=== PATIENT | female | born 2000 | race Caucasian/White ===

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

== ENCOUNTER → 2019-01-10 | Outpatient (CLI) | payer MEDICAID, SELFPAY ==
[2018-11-23 15:18] VITALS: BMI 46.5
[2019-01-10 14:44] LABS: Hematocrit 34.2 % (37-47); Hemoglobin 10.6 g/dL (12.0-15.0); Mean Platelet Vol. 9.2 fl (6.2-12.0); Platelet Count 345 K/mm3 (150-450); RBC Distribution Width SD 44.7 fl (35.1-43.9); Red Blood Count 3.93 M/mm3 (4.2-5.4); White Blood Count 13.6 K/mm3 (4.4-11.0)
[2019-01-10 14:57] LABS: Free T3 2.1 pg/mL (2.18-3.98); Glucose Challenge Gest 1H 50g 60 mg/dL (70-140); T4 Free Direct 0.97 ng/dL (0.76-1.46); Thyroid Stim Hormone (TSH) 1.36 uIU/mL (0.358-3.74)
[2019-01-10 14:58] LABS: Vitamin D,25 Hydroxy 30.1 ng/mL (29.95-100.01)
[2019-01-11 16:35] LABS: Ferritin 25 ng/mL (8-252)
== END | disposition home or self-care (01) ==
LOC: WOBLAB 13:24
PROVIDERS: Visit Provider Obstetrics & Gynecology
DX: Z34.82 Encounter for supervision of other normal pregnancy, second trimester (principal)
CPT/HCPCS: 36415; 82306; 82728; 82950; 84439; 84443; 84481; 85027

== ENCOUNTER 2019-01-11 22:25 | Outpatient (CLI) | payer MEDICAID, SELFPAY ==
[2018-11-23 15:18] VITALS: BMI 46.5
[2019-01-11 23:38] VITALS: BMI 47.7
--- NOTE | 2019-01-15 17:48 | OB.TRI.NOTE ---
History of Present Illness Date of Service: 01/11/19 Was patient seen by the physician?: No Reason For Visit: ABD PAIN Date of Service: 01/11/19 Final MARIBEL: 04/07/19 Final MARIBEL Source: US <20 weeks Gestational age: 27 Weeks and 5 Days History of Present Illness: 18 yo female presents with discomfort at LUQ. No N/V 27 + wk EGA Allergies adhesive tape Adverse Reaction (Mild, Verified 11/23/18 15:17) Blisters - Pertinent Past Medical History Medical History: Past Medical History (Last Reviewed 11/23/18 @ 15:18 by Margret Smallwood) Secondary oligomenorrhea Subclinical hypothyroidism Surgical History: Past Surgical History (Last Reviewed 11/23/18 @ 15:18 by Margret Smallwood) H/O wisdom tooth extraction History of placement of ear tubes NST - FHR Rate Baby A Baseline: 130-140 avg Variability:: Moderate Accelerations:: None NST Reactive:: Appropriate for gestational age FHR Category:: Category I Uterine Activity:: no UCs noted Impression/Plan 27 5/7 wk LUQ abdominal discomfort Musculoskeletal pain. Comfort measures. False labor. Home, rest, tylenol. Stretches. Keep next ofc appt as scheduled.
== END 2019-01-12 | disposition home or self-care (01) ==
LOC: WPOUT 22:56 → WP 22:57
PROVIDERS: Visit Provider Obstetrics & Gynecology
DX: O47.02 False labor before 37 completed weeks of gestation, second trimester (principal); O26.892 Other specified pregnancy related conditions, second trimester; R10.12 Left upper quadrant pain; Z3A.27 27 weeks gestation of pregnancy
CPT/HCPCS: 59050; 99218; G0378

== ENCOUNTER → 2019-03-16 14:36 | Outpatient (CLI) | payer MEDICAID, SELFPAY | PROVIDERS: Visit Provider Obstetrics & Gynecology | DX: Z36.85 Encounter for antenatal screening for Streptococcus B (principal) | CPT/HCPCS: 87077; 87081; 87186 ==

== ENCOUNTER 2019-03-30 21:31 | Inpatient (IN) | payer MEDICAID, SELFPAY ==
[2019-03-30 21:24] LABS: ROM Internal Control Test YES-OK TO RESULT pt. (Internal QC)
[2019-03-30 21:25] LABS: ROM Patient Test POSITIVE (Negative)
--- NOTE | 2019-03-30 21:40 | PCM.HP.OB ---
- Problem List (1) 38 weeks gestation of Status: Acute History Date of Admission: 03/30/19 Final MARIBEL: 04/07/19 Final MARIBEL Source: US <20 weeks Gestational age: 39 Weeks and 0 Days History of this : This is a 18 year-old, G [1], P [0], at 38.6 weeks gestational age. complicated by maternal obesity. Weekly NSTs began at 36 weeks. Today had NST in office, reactive and reassuring. Medical History: Medical History (Last Reviewed 11/23/18 @ 15:18 by Margret Smallwood) Secondary oligomenorrhea N91.4 Subclinical hypothyroidism E03.9 Surgical History: Surgical History (Last Reviewed 11/23/18 @ 15:18 by Margret Smallwood) H/O wisdom tooth extraction K08.409 History of placement of ear tubes Z96.22 Allergies adhesive tape Adverse Reaction (Mild, Verified 11/23/18 15:17) Blisters Home Medications: Home Medications cholecalciferol (vitamin D3) 5,000 unit capsule 5,000 unit PO DAILY 08/01/18 levothyroxine 50 mcg tablet 50 mcg PO DAILY 08/02/18 Tablet 1 tab PO DAILY 01/11/19 Ferrous Sulfate 325 mg PO BID 03/31/19 L.acidoph,Paracasei, B.lactis [Probiotic] 1 ea PO DAILY 03/31/19 Magnesium 30 mg PO DAILY 03/31/19 Smoking Status: Never smoker Number of Fetus(es): 1 NST - FHR Rate Baby A Baseline: 135 Variability:: Moderate Accelerations:: 15 x 15 Decelerations:: None NST Reactive:: Yes FHR Category:: Category I Uterine Activity:: UC 4-6 min History Labs: Mom's Problem List Problem Status Onset Code 38 weeks gestation of Acute Z3A.38 Mom's Labs & Results 03/30/19 03/30/19 03/30/19 21:10 22:30 22:30 WBC 13.8 H RBC 4.22 Hgb 11.5 L Hct 36.4 L MCV 86.3 MCH 27.3 MCHC 31.6 L RDW Std Deviation 48.1 H RDW Coeff of Adenike 15.5 H Plt Count 324 MPV 9.5 Immature Gran % (Auto) 1.400 H Neut % (Auto) 77.3 H Lymph % (Auto) 14.8 L [place] % (Auto) 5.5 Eos % (Auto) 0.7 Baso % (Auto) 0.3 Absolute Neuts (auto) 10.7 H Absolute Lymphs (auto) 2.04 Nucleated RBC % 0 Vag Amniotic Fld Detect POSITIVE H Blood Type O POSITIVE Antibody Screen NEGATIVE Course Did the patient receive Yes care? Labs Blood Type: O RH: POSITIVE RPR/VDRL/Syphilis Nonreactive Rubella status Immune HbSAg Negative Date Done: 09/07/18 Chlamydia Negative Gonorrhea Negative HIV/AIDS Non-Reactive Group B Strep: Positive Current Obstetrical History Gestational Diabetes No Incompetent Cervix No Infertility No IUGR No Macrosomia No Hypertension/Pre-eclampsia No Placenta Previa/Abruption No PTL/PROM No Uterine anomaly No Oligohydramnios No Polyhydramnios No Multiple gestation No Past Medical History Asthma No Diabetes No Hypertension No Heart disease No Mitral valve prolapse No Neurologic/Seizure disorder/ No Migraines Kidney disease No Liver disease No Varicosities Yes: legs Clotting disorders/Hx of DVT No Thyroid Dysfunction Yes: hypothyroidism Other medical diseases No Psychiatric disorders No Major trauma No Abnormal PAP smear No Sleep apnea No Mammogram in the last 2 years No Enter DETAILS of medical PCOS history Social History Marital Status: SINGLE Alleged father Sven Joya Hx Smoking No Smoking Status Never smoker Expected Delivery Method: Spontaneous Vaginal Number of Visits: 13 Review of Systems Constitutional: Denies: Chills, Fever, Weight Change HEENT: Denies: Head Aches, Sinus Congestion, Sinus Drainage Cardiovascular: Denies: Chest Pain, Palpitations Respiratory: Denies: Cough, Shortness of breath at rest, Sputum production Gastrointestinal: Denies: Abdominal Pain, Nausea, Vomiting Genitourinary: Denies: Dysuria Musculoskeletal: Denies: Joint Pain, Joint Tenderness Skin: Denies: Rash, Wounds Neurological: Denies: Numbness, Tingling, Focal weakness Psychiatric: Denies: Anxiety, Depression, Homicidal Ideations, Suicidal Ideations Hematologic/ Lymphatic: Denies: Easy Bruising, Easy Bleeding Physical Exam General: Alert, Oriented x3, No apparent distress HEENT: Atraumatic, Normocephalic. Negative for: Thyromegaly, Lymphadenopathy Cardiovascular: Regular rate, Regular Rhythm Lungs: Clear to auscultation Abdomen: Bowel Sounds Present, Gravid Neurological: Deep Tendon Reflexes 2+/4 and Symmetrical, Neuro grossly intact MANAGEMENT SCIENTIST: Normal external genitalia. Negative for: Vulvar lesions Estimated gestational size: Appropriate for gestational size Presentation: Cephalic Cervix Dilation (cm): 3 - per RN report Station: -3 Effacement (%): 70 Assessment/Plan All Active Problems (Last Reviewed 11/23/18 @ 15:18 by Margret Smallwood) 38 weeks gestation of (Acute) Contact with contaminated hypodermic needle (Acute) Puncture wound of left thumb without foreign body without damage to nail (Acute) (Acute) Hypersomnia (Acute) Physical exam, pre-employment (Acute) This is a 18 year-old, G [1], P [0], at 38.6 weeks gestational age. NST baseline 135, +accels 15x15, negative decels, moderate variability, Category 1 Spontaneous Rupture of Membranes as evidenced by ROM testing SVE /-3 UC Q4-6minutes GBS+ Will admit for labor. Wants a natural delivery.Will recheck SVE in 6 hours if contractions remain regular and consistent. If contractions space out, will recheck SVE in 4 hours. Discussed Pitocin augmentation. Plans four support persons and tub for pain management. Penicillin to begin for positive GBS results.
[2019-03-30] MEDS: Lactated Ringers 1,000 ML 50 ML IV (22:30)
[2019-03-30 22:34] VITALS: BMI 51.4
[2019-03-30 22:53] LABS: Absolute Lymphocyte Count 2.04 X10^3/uL (0.83-4.51); Absolute Neutrophil Count 10.7 X10^3/uL (2.0-7.7); Basophil# 0.04 X10^3/uL; Basophil% 0.3 % (0-1); Eosinophil# 0.09 X10^3/uL; Eosinophils% 0.7 % (0-5); Hematocrit 36.4 % (37-47); Hemoglobin 11.5 g/dL (12.0-15.0); Lymphocyte # 2.04 X10^3/ul (4.0); Lymphocyte % 14.8 % (19-41); Mean Corp Hgb Conc 31.6 g/dL (32-36); Mean Corpuscular Hgb 27.3 pg (27.0-32.0); Mean Corpuscular Volume 86.3 fL (81-99); Mean Platelet Vol. 9.5 fl (6.2-12.0); Monocyte# 0.76 X10^3/uL; Monocyte% 5.5 % (0-10); NRBC Flagged by Analyzer 0 % (0-5); Neutrophil # 10.69 X10^3/uL (2.7-7.7); Neutrophil % 77.3 % (47-70); Platelet Count 324 K/mm3 (150-450); RBC Distribution Width CV 15.5 % (11.6-14.6); RBC Distribution Width SD 48.1 fl (35.1-43.9); Red Blood Count 4.22 M/mm3 (4.2-5.4); White Blood Count 13.8 K/mm3 (4.4-11.0)
[2019-03-31] MEDS: Mag Hydrox/Al Hydrox/Simeth 30 ML UDC PO (02:44)
[2019-03-31] MEDS: Lactated Ringers 1,000 ML 50 ML IV (05:16)
[2019-03-31] MEDS: Oxytocin 30 units/NS 500 ml 30 UNITS/500 ML IV.SOLN IV (06:29)
[2019-03-31] MEDS: Lactated Ringers 500 ML 999 ML IV ×3 (07:15→15:13)
[2019-03-31] MEDS: fentaNYL-bupivacaine (epidural) 100 ML BAG EPIDURAL ×2 (08:28→13:18)
--- NOTE | 2019-03-31 10:49 | PN_ITS ---
Progress Note Called with RN update at 0230 stating SVE at 3.5-/-3. Patient wanting to get into tub for pain management. Order at that time with okay for tub per [facility] office notes. To recheck SVE at 0600. If not 5+cm will need to augment with Pitocin since SROM. Continue Penicillin and maternal temperature checks. Okay to get epidural when needed. Will collaborate with attending Dr. Mata if needed. 1030 on unit. Updated with SVE 3, currently on Pitocin at [address] Mata who states to place internals to monitor strength of contractions. Patient updated with plan of care and would like to wait a little bit before internals being placed. Agreed to give her one more hour.
[2019-03-31] MEDS: Lactated Ringers 1,000 ML 200 ML IV (13:20)
--- NOTE | 2019-03-31 13:41 | PN.OBGYN_ITS ---
Patient Problems: Active and Suspected Problems (Last Reviewed 11/23/18 @ 15:18 by Margret Smallwood) 38 weeks gestation of (Acute) Subjective: Feeling pressure in the abdomen during peak of contraction, otherwise no pain. Bilateral legs completely numb. States feels better with nurses and director of rehabilitative services talking her through everything and is much more comfortable now. Objective: Before internals placed SVE 370/-3 with forebag over head. IUPC and FEM placed causing rupture of forebag and increased bloody show. SVE after 5/80/-2. Pitocin currently on 12 with UC Q1-4 minutes, adequate. FHR baseline 125 with +accels 15x15 and early decels noted after internals placed. - Physical Exam Vitals/I&O's: Weight: 140.2 kg Body Mass Index (BMI) 51.4 Intake and Output for Last 24 Hours 03/29/19 03/30/19 03/31/19 23:59 23:59 23:59 Intake Total 630 / 630 2960.98 / 2960.98 Output Total 300 / 300 400 / 400 Balance 330 / 330 2560.98 / 2560.98 General: Alert, Oriented x3, Cooperative HEENT: Atraumatic, PERRLA, EOMI, Normocephalic Neck: Supple, No JVD, Negative Carotid Bruits Lungs: Clear to auscultation, Normal air movement Cardiovascular: Regular rate, No murmurs Abdomen: Bowel Sounds Present, Soft, Non Tender Extremities: No edema, Capillary Refill Less than 3 Seconds Skin: No rashes, No breakdown Musculoskeletal: No Tenderness to Palpation of Joints or Extremities Neurological: Cranial nerves II-XII grossly intact Psych/Mental Status: Normal Affect, Appropriate Laboratory Results 03/30/19 21:10: Vag Amniotic Fld Detect POSITIVE H 03/30/19 22:30: WBC 13.8 H, RBC 4.22, Hgb 11.5 L, Hct 36.4 L, MCV 86.3, MCH 27.3, MCHC 31.6 L, RDW Std Deviation 48.1 H, RDW Coeff of Adenike 15.5 H, Plt Count 324, MPV 9.5, Immature Gran % (Auto) 1.400 H, Neut % (Auto) 77.3 H, Lymph % (Auto) 14.8 L, [place] % (Auto) 5.5, Eos % (Auto) 0.7, Baso % (Auto) 0.3, Absolute Neuts (auto) 10.7 H, Absolute Lymphs (auto) 2.04, Nucleated RBC % 0 03/30/19 22:30: Blood Type O POSITIVE, Antibody Screen NEGATIVE Current Medications Acetaminophen (Tylenol) 325 - 650 mg PO Q4H PRN PRN PRN Reason: Pain Score 1-3/10 Al Hydroxide/Mg Hydroxide (Mylanta Ii) 15 - 30 ml PO Q4H PRN PRN PRN Reason: INDIGESTION Last Admin: 03/31/19 02:44 Dose: 30 ml Documented by: Citric Acid/Sodium Citrate (Bicitra) 30 ml PO X1 PRN PRN Reason: Section Ephedrine Sulfate () 10 mg IV Q10M PRN PRN Reason: hypotension Ephedrine Sulfate () 10 mg IM Q30M PRN PRN Reason: hypotension Fentanyl/Bupivacaine/Sodium Chlor () 0 ml EPIDURAL UD [facility]; Protocol Last Admin: 03/31/19 13:18 Dose: 100 ml Documented by: Lactated Ringer's () 500 mls @ 999 mls/hr IV .Q31M PRN PRN Reason: Epidural Last Infusion: 03/31/19 09:09 Dose: Infused Documented by: Lactated Ringer's () 500 mls @ 999 mls/hr IV .Q31M PRN PRN Reason: Corrective Measures Lactated Ringer's () 1,000 mls @ 50 mls/hr IV .Q20H [facility] Last Admin: 03/31/19 13:20 Dose: 200 mls/hr Documented by: Penicillin G Potassium/Dextrose (Penicillin G Potassium) 3 mu in 50 mls @ 100 mls/hr IV Q4H [facility] Last Infusion: 03/31/19 11:36 Dose: Infused Documented by: Naloxone HCl 4 mg/ Dextrose 504 mls @ 0 mls/hr IV .Q0M PRN; Protocol PRN Reason: To maintain Resp. rate >10 Oxytocin/Sodium Chloride () 30 units in 500 mls @ 2 mls/hr IV .Q250H [facility] Last Infusion: 03/31/19 11:04 Dose: 12 mls/hr Documented by: Nalbuphine HCl (Nubain) 5 - 10 mg IV Q3H PRN PRN PRN Reason: Pain Score 4-10/10 Nalbuphine HCl (Nubain) 5 mg IV Q3H PRN PRN PRN Reason: ITCHING Naloxone HCl (Narcan) 0.02 mg IV Q1M PRN PRN Reason: RR< 10 AND PT UNRESPONSIVE Ondansetron HCl (Zofran) 4 mg IV Q4H PRN PRN PRN Reason: NAUSEA Prochlorperazine Edisylate (Compazine Iv) 10 mg IV Q6H PRN PRN PRN Reason: NAUSEA Sodium Chloride () 10 - 40 ml IV X1 PRN PRN Reason: SALINE FLUSH Medical Necessity - Tobacco Use Smoking Status: Never smoker Assessment/Plan All Active Problems (Last Reviewed 11/23/18 @ 15:18 by Margret Smallwood) 38 weeks gestation of (Acute) Contact with contaminated hypodermic needle (Acute) Puncture wound of left thumb without foreign body without damage to nail (Acute) (Acute) Hypersomnia (Acute) Physical exam, pre-employment (Acute) A: 39w1d here with SROM Augmentation with Pitocin, currently at 12 NST Reactive, Category I tracing Epidural in place UC Q1-4 minutes with IUPC showing adequate contractions Active Labor GBS+ on Penicillin protocol Mother afebrile 98.5 P: Continue with Pitocin as tolerated by mother and fetus Expect spontaneous vaginal delivery To recheck SVE at 1700 or as needed
[2019-03-31] MEDS: Oxytocin 30 units/NS 500 ml 30 UNITS/500 ML IV.SOLN 6 UNITS IV (15:37)
--- NOTE | 2019-03-31 15:50 | PCM.PN.BLA ---
Progress Note LABOR PROGRESS NOTE Called to WP for FHR deceleration. Pt had been on 12 mIU/min pitocin induction after SROM. PCN for GBS prophylaxis and prolonged SROM> Strip reviewed: IFM: 110-120s avg variability Accels noted. Variable decelerations FHR deceleration then noted to as low as 60 bpm with intermittent return. lasting up to 8 mins UCs q 2-4 mins Pitocin off O2 on position changes and IV bolus. FHR recovered. Cx rapid progression from 5 cm to complete, noted at time of FHR decel A/P: 39 wk EGA Prolonged SROM Pitocin induction Epidural in place, comfortable. Pt back to OR for FHR deceleration. FHR recovered to baseline, and mild variables with pushing.
[2019-03-31] MEDS: Oxytocin 30 units/NS 500 ml 30 UNITS/500 ML IV.SOLN 334 UNITS IV (16:31)
[2019-03-31] MEDS: Methylergonovine 0.2 MG/ML Ampul IM (16:34)
[2019-03-31] MEDS: miSOPROStol 200 MCG Tablet 800 MCG RECTAL (16:35)
--- NOTE | 2019-03-31 17:07 | PCM.OPRPT ---
Problem List (1) 38 weeks gestation of Status: Acute Vaginal Delivery Maternal Presentation: Spontaneous Rupture of Membranes Method of Induction: Pitocin Amniotic Membrane Rupture Type: Spontaneous at home Rupture of Membrane time: 1500 on 03/30/2019 Amniotic Fluid Description: Clear Final MARIBEL: 04/06/19 Final MARIBEL Source: US <20 weeks Gestational age: 39 Weeks and 1 Days Date of Procedure: 03/31/19 Pre-Operative Diagnosis: 39 weeks gestation Post-Operative Diagnosis: S/P Surgery/ Procedure Performed: Spontaneous Vaginal Delivery Type of Anesthesia: Epidural Description of Procedure: Taken to OR to proceed with pushing in collaboration with CNM attending, Dr. Mata present. Pushed well, delivered a viable male OA to MIGUEL. Nuchal x2 removed from infants neck, infant placed on mothers abdomen. Apgars 8/9. Cord blood collected. Cord clamped x2 by CNM and cut by FOB. Pitocin started at 334ml/hr. Placenta delivered spontaneously, Alvarado mechanism, intact, 3 vessel cord, central insertion. With post placental bleeding, administered 800mg Cytotec rectal, Methergine IM, and Pitocin wide open. Dr. Mata was able to use curretage to remove retained placental products. Second degree laceration of right vaginal vault extending to perineum, repaired with a 3.0 vicryl in layers by CNM and attending. EBL 400. Sponge and instrument count correct x 2 with CAITLIN. Rylie Lagunas CNM delivered with CNM attending Dr. Mata present throughout. Presentation: Vertex, MIGUEL Placental Delivery Description: Spontaneous, Curettage - of remained products by Dr. Mata Placenta Disposition: [facility] Cord Vessel Description: 3 Vessels Cord Entanglement: Around neck x 2, loose Estimated Blood Loss: 450 A gender: Male (1 minute): 8 (5 minute): 9 Episiotomy Description: None Laceration: Vaginal Extension/lac, 2nd degree Medications given after delivery: IV Pitocin, IM Methergin, - - 800mg Cytotec
[2019-03-31] MEDS: Ibuprofen 600 MG Tablet PO ×2 (17:56→23:44)
[2019-03-31] MEDS: Oxytocin 30 units/NS 500 ml 30 UNITS/500 ML IV.SOLN 167 UNITS IV (18:22)
[2019-03-31] MEDS: Acetaminophen 500 MG Tablet 1000 MG PO (19:34)
[2019-03-31] MEDS: 0.9% Saline Lock 10 ML Syringe IV (20:35)
[2019-03-31 23:45] VITALS: BP 133/81; PULSE 77; RESP 19; TEMP 36.1
[2019-04-01] MEDS: Dibucaine 30 GM Tube 1 APPLIC TOPICAL (01:47)
[2019-04-01] MEDS: Hydrocortisone 2.5% Crm 1 APPLIC TOPICAL (01:48)
[2019-04-01] MEDS: Senna/Docusate Sodium 1 Tablet PO ×2 (01:48→13:31)
[2019-04-01] MEDS: oxyCODONE 5 MG Tablet PO ×2 (01:49→20:27)
[2019-04-01 04:01] VITALS: BP 122/69; PULSE 80; RESP 18; TEMP 36.5
[2019-04-01] MEDS: Acetaminophen 500 MG Tablet 1000 MG PO ×2 (04:13→13:31)
[2019-04-01] MEDS: Ibuprofen 600 MG Tablet PO ×2 (06:12→12:13)
[2019-04-01 06:31] LABS: Hematocrit 28.9 % (37-47); Hemoglobin 9.2 g/dL (12.0-15.0); Mean Corp Hgb Conc 31.8 g/dL (32-36); Mean Corpuscular Hgb 27.2 pg (27.0-32.0); Mean Corpuscular Volume 85.5 fL (81-99); Mean Platelet Vol. 9.6 fl (6.2-12.0); Platelet Count 249 K/mm3 (150-450); RBC Distribution Width CV 15.6 % (11.6-14.6); RBC Distribution Width SD 48.8 fl (35.1-43.9); Red Blood Count 3.38 M/mm3 (4.2-5.4); White Blood Count 13.9 K/mm3 (4.4-11.0)
[2019-04-01 08:00] VITALS: BP 130/67; PULSE 85; RESP 15; TEMP 36.7
--- NOTE | 2019-04-01 09:31 | PCM.PN.OB ---
Patient Problems: Active and Suspected Problems (Last Reviewed 11/23/18 @ 15:18 by Margret Smallwood) 38 weeks gestation of (Acute) Subjective: Feeling okay. States pain is mostly from hemorrhoid from pushing. Has been rotating Tylenol, Motrin and took Oxy at HS to help her sleep. Using witch reinier pads and ointments directly on hemorrhoid and one on vagina. Objective: In bed laying on left side upon entering room with infant in bassinet bedside. Pain 4/10 hemorrhoidal. is going well. Last fed at 7am. Fundus U/1. Bleeding well controlled and denies any clots. Hg 9.5 and currently taking daily PO Iron. BMx1 last evening. Vitals WNL. - Physical Exam Vitals/I&O's: Vital Signs Temp Pulse Resp BP 97.7 F L 80 18 122/69 H 04/01/19 04:01 04/01/19 04:01 04/01/19 04:01 04/01/19 04:01 Oxygen Delivery Method Room Air Weight: 140.2 kg Body Mass Index (BMI) 51.4 Intake and Output for Last 24 Hours 03/30/19 03/31/19 04/01/19 23:59 23:59 23:59 Intake Total 630 / 630 4962.75 / 4962.75 Output Total 300 / 300 2600 / 2600 600 / 600 Balance 330 / 330 2362.75 / 2362.75 -600 / -600 General: Alert, Oriented x3, Cooperative HEENT: Atraumatic, PERRLA, EOMI, Normocephalic Neck: Supple, No JVD, Negative Carotid Bruits Lungs: Clear to auscultation, Normal air movement Cardiovascular: Regular rate, No murmurs Abdomen: Bowel Sounds Present, Soft, Non Tender Extremities: No edema, Capillary Refill Less than 3 Seconds Skin: No rashes, No breakdown, - - vaginal laceration Musculoskeletal: No Tenderness to Palpation of Joints or Extremities Neurological: Cranial nerves II-XII grossly intact Psych/Mental Status: Normal Affect, Appropriate Laboratory Results 04/01/19 06:15: WBC 13.9 H, RBC 3.38 L, Hgb 9.2 L, Hct 28.9 L, MCV 85.5, MCH 27.2, MCHC 31.8 L, RDW Std Deviation 48.8 H, RDW Coeff of Adenike 15.6 H, Plt Count 249, MPV 9.6 Current Medications Acetaminophen (Tylenol) 1,000 mg PO Q8H PRN PRN PRN Reason: Pain Score 1-3/10 Last Admin: 04/01/19 04:13 Dose: 1,000 mg Documented by: Bisacodyl (Dulcolax) 10 mg RECTAL UD PRN PRN Reason: If no BM Dibucaine (Dibucaine) 1 applic TOPICAL TID PRN PRN; Protocol PRN Reason: Discomfort Last Admin: 04/01/19 01:47 Dose: 1 applicatio Documented by: Hydrocortisone (Hytone) 1 applic TOPICAL TID PRN PRN; Protocol PRN Reason: Discomfort Last Admin: 04/01/19 01:48 Dose: 1 applicatio Documented by: Ibuprofen (Motrin) 600 mg PO Q6H PRN PRN PRN Reason: Pain Score 1-3/10 Last Admin: 04/01/19 06:12 Dose: 600 mg Documented by: Methylergonovine Maleate (Methergine) 0.2 mg IM X1 PRN PRN Reason: Excess bleeding/uterine atony Last Admin: 03/31/19 16:34 Dose: 0.2 mg Documented by: Ondansetron HCl (Zofran) 4 mg IV Q4H PRN PRN PRN Reason: Nausea Oxycodone HCl (Oxyir) 5 - 10 mg PO Q4H PRN PRN PRN Reason: Pain Score 4-10/10 Last Admin: 04/01/19 01:49 Dose: 10 mg Documented by: Senna/Docusate Sodium (Senokot-S, [place]ron[place]-Colace) 1 - 2 tablet PO DAILY PRN PRN PRN Reason: Constipation Last Admin: 04/01/19 01:48 Dose: 1 tablet Documented by: Simethicone (Mylicon) 80 mg PO PCHS PRN PRN Reason: Indigestion/Stomach pain Sodium Chloride () 5 - 15 ml IV UD PRN PRN Reason: SALINE FLUSH Last Admin: 03/31/19 20:35 Dose: 10 ml Documented by: Medical Necessity - Tobacco Use Smoking Status: Never smoker Assessment/Plan All Active Problems (Last Reviewed 11/23/18 @ 15:18 by Margret N Cogar) 38 weeks gestation of (Acute) Contact with contaminated hypodermic needle (Acute) Puncture wound of left thumb without foreign body without damage to nail (Acute) (Acute) Hypersomnia (Acute) Physical exam, pre-employment (Acute) A: Post Vaginal Delivery Day #1 Hemorrhoidal and Vaginal laceration pain 4/10 being controlled with oral medication Male doing well BM x1 11-23-19, but denies Flatus today. Educated on colace, increased fluids, increased fiber, and not straining. Hg 9.5 Stable mother and male infant P: Continue oral pain medication, colace/stool softener, comfort measures, and Plan to discharge tomorrow afternoon
--- NOTE | 2019-04-01 10:16 | PCM.DCVAG ---
Discharge Diet: No Restrictions Discharge Activity: Return to Normal Activity, May not drive while taking narcotic pain medications., May Shower May resume sexual activity in: 4-6 weeks Additional Activity Instructions:: Nothing in the vagina for 4-6 weeks. You may return to work/school in 6 weeks. Call your doctor if your incision/area has: Continuous Slow Oozing, Sudden Increased Bleeding, Increased Pain/ Swelling, Increased Redness, Foul Smelling Discharge Call your doctor if you observe: Fever of 101 or Higher, Coldness, Increased Pain, Numbness or Tingling, Inability to urinate, Inability to have a bowel movement, Using more than one pad per hour, Shortness of breath, Dizziness, Swelling in the ankles, Chest pain, Increased palpitations (irregular heartbeat), Calf discomfort, Uncontrolled pain Additional Instructions: If you experience any of the following, contact your healthcare provider. Bleeding that soaks a pad every hour for 2 hours Unrelieved incision or abdominal pain Swelling, redness, discharge or bleeding from your incision or episiotomy site Your incision begins to separate Problems urinating (including inability to urinate or burning while urinating). Visual changes Severe headache Flu-like symptoms Pain or redness in one of both of your breasts Pain, warmth, tenderness or swelling in your legs, especially the calf area Frequent nausea and vomiting Symptoms of depression or anxiety If you experience any of the following, call 911 or go to the nearest Emergency Room. Chest pain Problems breathing Seizure activity Partial or complete paralysis of a body part, slurred speech, weakness or drooping of the face, or a sudden inability to walk or hold your balance Allergies/Adverse Reactions: Allergies adhesive tape Adverse Reaction (Mild, Verified 11/23/18 15:17) Blisters Medications to take at Discharge cholecalciferol (vitamin D3) 5,000 unit capsule 5,000 unit PO DAILY 08/01/18 levothyroxine 50 mcg tablet 50 mcg PO DAILY 08/02/18 Tablet 1 tab PO DAILY 01/11/19 Ferrous Sulfate 325 mg PO BID 03/31/19 L.acidoph,Paracasei, B.lactis [Probiotic] 1 ea PO DAILY 03/31/19 Magnesium 30 mg PO DAILY 03/31/19 Acetaminophen [Tylenol] 1,000 mg PO Q8H PRN PRN tablet 04/01/19 Bisacodyl [Dulcolax] 10 mg RECTAL UD PRN suppos. 04/01/19 Dibucaine 1 applic TOPICAL TID PRN PRN tube 04/01/19 Docusate Sodium [Colace] 200 mg PO DAILY #30 cap 04/01/19 Hydrocortisone 2.5% Crm [Hytone] 1 applic TOPICAL TID PRN PRN tube 04/01/19 Ibuprofen [Motrin] 600 mg PO Q6H PRN PRN #30 tab 04/01/19 Oxycodone [Oxyir] 5 - 10 mg PO Q4H PRN PRN 4 Days #10 tablet 04/01/19 The following prescriptions were given: Docusate Sodium [Colace] 200 mg PO DAILY #30 cap Transmission Status: Pending to [facility] [address] Ibuprofen [Motrin] 600 mg PO Q6H PRN PRN #30 tab PRN Reason: Pain Score 1-3/10 Transmission Status: Pending to [place] [id number] Oxycodone [Oxyir] 5 - 10 mg PO Q4H PRN PRN 4 Days #10 tablet PRN Reason: Pain Score 4-10/10 Transmission Status: Received by [address] Please Follow Up With: Loretta Martinez MD When: Call to make an appointment with your doctor in 6 weeks. Test Results: Test results from this visit will be discussed in further detail at your follow-up appointment, if applicable. Proposed Discharge Date: 04/02/19
[2019-04-01 12:00] VITALS: BP 98/53; PULSE 85; RESP 16; TEMP 36.2
[2019-04-01 16:16] VITALS: BP 118/57; PULSE 81; RESP 15; TEMP 36.6
[2019-04-01 19:40] VITALS: BP 94/55; PULSE 86; RESP 18; TEMP 37
[2019-04-02] MEDS: Ibuprofen 600 MG Tablet PO ×3 (00:01→13:18)
[2019-04-02 02:00] VITALS: BP 118/57; PULSE 74; RESP 18; TEMP 36.1
[2019-04-02] MEDS: Dibucaine 30 GM Tube 1 APPLIC TOPICAL (06:24)
[2019-04-02] MEDS: Acetaminophen 500 MG Tablet 1000 MG PO (06:25)
[2019-04-02 08:00] VITALS: BP 129/59; PULSE 83; RESP 16; TEMP 36.2
[2019-04-02] MEDS: Docusate Sodium 100 MG Capsule 200 MG PO (08:13)
--- NOTE | 2019-04-02 08:21 | PCM.DC.SUM ---
Discharge Date and Diagnosis - Problem List Patient Problems: Active and Suspected Problems (Last Reviewed 11/23/18 @ 15:18 by Margret Smallwood) 38 weeks gestation of (Acute) Date of Admission: 03/30/19 Date of Discharge: 04/02/19 - Primary Discharge Diagnosis S/P - Secondary Discharge Diagnosis Chronic Problems (Last Reviewed 11/23/18 @ 15:18 by Margret Smallwood) Morbid (severe) obesity due to excess calories (Chronic) Hospital Course and Treatment Operations: None Procedures: None Summary of Care Provided: The patient is a 18 year old F [] Patient Problems: Active and Suspected Problems (Last Reviewed 11/23/18 @ 15:18 by Margret Smallwood) 38 weeks gestation of (Acute) Subjective: Day #2 from [facility]. Feeling well. Passing flatus with Colace. Has been using witch reinier pads with hydrocortisone and other cream to hemorrhoids. States baby has fed for the last two hours and she is tired. Wanting help getting him changed and swaddled. Pain currently 5/10 taking motrin, tylenol, and oxy IR just at HS. Will call for help and s/s of PPD. Objective: Vitals WNL. Fundus u/2. Currently taking Colace, Motrin, Tylenol, and Oxy IR as well as using Witch Reinier pads with ointment. To continue all. Appears well healing day 2. - Physical Exam Vitals/I&O's: Vital Signs Temp Pulse Resp BP 97.0 F L 74 18 118/57 L 04/02/19 02:00 04/02/19 02:00 04/02/19 02:00 04/02/19 02:00 Oxygen Delivery Method Room Air Weight: 140.2 kg Body Mass Index (BMI) 51.4 Intake and Output for Last 24 Hours 03/31/19 04/01/19 04/02/19 23:59 23:59 23:59 Intake Total 4962.75 / 4962.75 Output Total 2600 / 2600 600 / 600 Balance 2362.75 / 2362.75 -600 / -600 General: Alert, Oriented x3, Cooperative HEENT: Atraumatic, PERRLA, EOMI, Normocephalic Neck: Supple, No JVD, Negative Carotid Bruits Lungs: Clear to auscultation, Normal air movement Cardiovascular: Regular rate, No murmurs Abdomen: Bowel Sounds Present, Soft, Non Tender Extremities: No edema, Capillary Refill Less than 3 Seconds Skin: No rashes, No breakdown Musculoskeletal: No Tenderness to Palpation of Joints or Extremities Neurological: Cranial nerves II-XII grossly intact Psych/Mental Status: Normal Affect, Appropriate Current Medications Acetaminophen (Tylenol) 1,000 mg PO Q8H PRN PRN PRN Reason: Pain Score 1-3/10 Last Admin: 04/02/19 06:25 Dose: 1,000 mg Documented by: Bisacodyl (Dulcolax) 10 mg RECTAL UD PRN PRN Reason: If no BM Dibucaine (Dibucaine) 1 applic TOPICAL TID PRN PRN; Protocol PRN Reason: Discomfort Last Admin: 04/02/19 06:24 Dose: 1 applicatio Documented by: Docusate Sodium (Colace) 200 mg PO DAILY CHEKO Stop: 04/09/19 10:01 Last Admin: 04/02/19 08:13 Dose: 200 mg Documented by: Hydrocortisone (Hytone) 1 applic TOPICAL TID PRN PRN; Protocol PRN Reason: Discomfort Last Admin: 04/01/19 01:48 Dose: 1 applicatio Documented by: Ibuprofen (Motrin) 600 mg PO Q6H PRN PRN PRN Reason: Pain Score 1-3/10 Last Admin: 04/02/19 08:09 Dose: 600 mg Documented by: Methylergonovine Maleate (Methergine) 0.2 mg IM X1 PRN PRN Reason: Excess bleeding/uterine atony Last Admin: 03/31/19 16:34 Dose: 0.2 mg Documented by: Ondansetron HCl (Zofran) 4 mg IV Q4H PRN PRN PRN Reason: Nausea Oxycodone HCl (Oxyir) 5 - 10 mg PO Q4H PRN PRN PRN Reason: Pain Score 4-10/10 Last Admin: 04/01/19 20:27 Dose: 10 mg Documented by: Senna/Docusate Sodium (Senokot-S, Petrona-Colace) 1 - 2 tablet PO DAILY PRN PRN PRN Reason: Constipation Last Admin: 04/01/19 13:31 Dose: 2 tablet Documented by: Simethicone (Mylicon) 80 mg PO HS PRN PRN Reason: Indigestion/Stomach pain Sodium Chloride () 5 - 15 ml IV UD PRN PRN Reason: SALINE FLUSH Last Admin: 03/31/19 20:35 Dose: 10 ml Documented by: Discharge Diet: No Restrictions Discharge Activity: Return to Normal Activity, May not drive while taking narcotic pain medications., May Shower May resume sexual activity in: 4-6 weeks Additional Activity Instructions:: Nothing in the vagina for 4-6 weeks. You may return to work/school in 6 weeks. Call your doctor if your incision/area has: Continuous Slow Oozing, Sudden Increased Bleeding, Increased Pain/ Swelling, Increased Redness, Foul Smelling Discharge Call your doctor if you observe: Fever of 101 or Higher, Coldness, Increased Pain, Numbness or Tingling, Inability to urinate, Inability to have a bowel movement, Using more than one pad per hour, Shortness of breath, Dizziness, Swelling in the ankles, Chest pain, Increased palpitations (irregular heartbeat), Calf discomfort, Uncontrolled pain Home Medications: Medications to take at Discharge cholecalciferol (vitamin D3) 5,000 unit capsule 5,000 unit PO DAILY 08/01/18 levothyroxine 50 mcg tablet 50 mcg PO DAILY 08/02/18 Tablet 1 tab PO DAILY 01/11/19 Ferrous Sulfate 325 mg PO BID 03/31/19 L.acidoph,Paracasei, B.lactis [Probiotic] 1 ea PO DAILY 03/31/19 Magnesium 30 mg PO DAILY 03/31/19 Acetaminophen [Tylenol] 1,000 mg PO Q8H PRN PRN tab 04/01/19 Bisacodyl [Dulcolax] 10 mg RECTAL UD PRN suppos. 04/01/19 Dibucaine 1 applic TOPICAL TID PRN PRN tube 04/01/19 Docusate Sodium [Colace] 200 mg PO DAILY #30 cap 04/01/19 Hydrocortisone 2.5% Crm [Hytone] 1 applic TOPICAL TID PRN PRN tube 04/01/19 Ibuprofen [Motrin] 600 mg PO Q6H PRN PRN #30 tab 04/01/19 Oxycodone [Oxyir] 5 - 10 mg PO Q4H PRN PRN 4 Days #10 tab 04/01/19 Following Prescrptions Were Given to Patient: Docusate Sodium [Colace] 200 mg PO DAILY #30 cap Transmission Status: Received by YOVANY [facility]HEWS [address] Ibuprofen [Motrin] 600 mg PO Q6H PRN PRN #30 tab PRN Reason: Pain Score 1-3/10 Transmission Status: Received by YOVANY MATHEWS RD Oxycodone [Oxyir] 5 - 10 mg PO Q4H PRN PRN 4 Days #10 tab PRN Reason: Pain Score 4-10/10 Transmission Status: Received by YOVANY MATHEWS RD Please Follow Up With: Loretta Martinez MD When: 6 weeks Disposition: Home Minutes spent on discharge:: 20 Patient Condition:: Stable Medical Necessity - Tobacco Use Smoking Status: Never smoker Meaningful Use Info Meaningful Use Diagnoses (Choose all that apply): None applicable
[2019-04-02 14:00] VITALS: BP 126/65; PULSE 88; RESP 16; TEMP 36.3
--- NOTE | 2019-04-06 11:39 | NURSING ---
had visit, doing well.
== END 2019-04-02 14:30 | disposition home or self-care (01) | DRG 560 ==
LOC: WPOUT 21:31
PROVIDERS: Admitting Provider Obstetrics & Gynecology; Family Provider Obstetrics & Gynecology; Visit Provider Obstetrics & Gynecology
DX: O42.92 Full-term premature rupture of membranes, unspecified as to length of time between rupture and onset of labor (principal); O99.214 Obesity complicating childbirth; E66.01 Morbid (severe) obesity due to excess calories; E03.9 Hypothyroidism, unspecified; O99.284 Endocrine, nutritional and metabolic diseases complicating childbirth; O99.824 Streptococcus B carrier state complicating childbirth; O76 Abnormality in fetal heart rate and rhythm complicating labor and delivery; O69.81X0 Labor and delivery complicated by cord around neck, without compression, not applicable or unspecified; O70.1 Second degree perineal laceration during delivery; O72.2 Delayed and secondary postpartum hemorrhage; O87.2 Hemorrhoids in the puerperium; Z37.0 Single live birth; Z3A.38 38 weeks gestation of pregnancy
CPT/HCPCS: 59025; 59050; 84112; 85025; 85027; 86850; 86900; 86901; 99218; J7120; A4216; G0378

== ENCOUNTER → 2019-05-18 16:15 | Outpatient (CLI) | payer MEDICAID, SELFPAY ==
[2019-05-18 18:23] LABS: Thyroid Stim Hormone (TSH) 1.07 uIU/mL (0.358-3.74)
[2019-05-18 18:32] LABS: Vitamin D,25 Hydroxy 34.7 ng/mL (29.95-100.01)
== END ==
PROVIDERS: Visit Provider Obstetrics & Gynecology
DX: E55.9 Vitamin D deficiency, unspecified (principal); E28.2 Polycystic ovarian syndrome; E03.9 Hypothyroidism, unspecified
CPT/HCPCS: 36415; 82306; 83036; 84443

== ENCOUNTER → 2019-11-13 07:05 | Outpatient (CLI) | payer OTHER, SELFPAY ==
[2019-11-13 10:51] LABS: Vitamin D,25 Hydroxy 47.1 ng/mL
[2019-11-13 11:01] LABS: AST(SGOT) 19 U/L (15-37); Alanine Aminotransfer ALT/SGPT 29 U/L (13-56); Alkaline Phosphatase 100 U/L (45-117); Anion Gap 13 (5-15); BUN 11 mg/dL (7-18); BUN/Creat Ratio 11.7 RATIO (10-20); Chloride 103 mmol/L (98-107); Cholesterol 193 mg/dL (200); Creatinine, Serum 0.94 mg/dL (0.55-1.02); EST Glomerular Filtration Rate 80 mL/min (>60); Est Glom Filt Rate - Afr Amer 97 mL/min (>60); Glucose 78 mg/dL (74-106); High Density Lipoprotein 44 mg/dL; Potassium 3.8 mmol/L (3.5-5.1); Sodium Level 139 mmol/L (136-145); Triglycerides 150 mg/dL; Very Low Density Lipoprotein 30 mg/dL (5-40)
[2019-11-14 12:21] LABS: T4 Free Direct 0.64 ng/dL (0.76-1.46)
[2019-11-14 12:28] LABS: T3 Total - Triiodothyronine 0.66 ng/mL (0.6-1.81)
== END ==
PROVIDERS: PCP Family Medicine; Referring Provider Family Medicine; Visit Provider Family Medicine
DX: E28.2 Polycystic ovarian syndrome (principal); E55.9 Vitamin D deficiency, unspecified; E03.9 Hypothyroidism, unspecified; R79.89 Other specified abnormal findings of blood chemistry
CPT/HCPCS: 36415; 80053; 80061; 82306; 84439; 84443; 84480

== ENCOUNTER → 2019-11-30 11:57 | Outpatient (CLI) | payer OTHER, SELFPAY ==
[2019-11-30 14:20] LABS: Probe Check PASS; Sample Adequacy Control PASS; Specimen Processing Control PASS; Trichomonas Vag DNA by PCR Negative (Negative)
[2019-11-30 14:35] LABS: Chlamydia Trachomatis by PCR Negative (Negative); Neisserai gonorrhoeae by PCR Negative (Negative); Probe Check PASS; Sample Adequacy Control PASS; Specimen Processing Control PASS
== END ==
PROVIDERS: PCP Family Medicine; Visit Provider Obstetrics & Gynecology
DX: Z11.3 Encounter for screening for infections with a predominantly sexual mode of transmission (principal); Z72.51 High risk heterosexual behavior
CPT/HCPCS: 87491; 87591; 87661

== ENCOUNTER → 2019-12-06 10:58 | Outpatient (CLI) | payer OTHER, SELFPAY ==
[2019-12-06 12:55] LABS: hCG Titer Quant., Serum < 1 mIU/mL (1-3)
== END ==
PROVIDERS: PCP Family Medicine; Visit Provider Obstetrics & Gynecology
DX: N91.2 Amenorrhea, unspecified (principal)
CPT/HCPCS: 36415; 84702

== ENCOUNTER → 2020-01-07 17:26 | Outpatient (CLI) | payer OTHER, SELFPAY | PROVIDERS: PCP Family Medicine; Referring Provider Family Medicine; Visit Provider Family Medicine | DX: Z20.828 Contact with and (suspected) exposure to other viral communicable diseases (principal) | CPT/HCPCS: 87635; 94799; U0003 ==

== ENCOUNTER → 2020-01-10 16:31 | Outpatient (CLI) | payer OTHER, SELFPAY ==
[2020-01-10 18:21] LABS: T4 Free Direct 1.19 ng/dL (0.76-1.46)
== END ==
PROVIDERS: PCP Family Medicine; Referring Provider Family Medicine; Visit Provider Family Medicine
DX: E03.9 Hypothyroidism, unspecified (principal); R79.89 Other specified abnormal findings of blood chemistry
CPT/HCPCS: 84439; 84443

== ENCOUNTER → 2020-02-01 | Outpatient (CLI) | payer OTHER, SELFPAY ==
[2020-02-01 17:53] LABS: Mucous, Urine 0 SEEN /hpf (<or=2+); Red Blood Cells-Urine 0 SEEN /hpf (0-5); White Blood Cells 0 SEEN /hpf (0-5)
[2020-02-01 18:40] LABS: Color, Urine Yellow (Yellow); Glucose, Dipstick Normal (Normal); Ketone-Dipstick Negative (Negative); Leukocyte Esterase-Dipstick Negative /ul (Negative); Nitrite-Dipstick Negative (Negative); Occult Blood-Urine Negative /ul (Negative); Protein-Dipstick Negative (Negative); Urine Bilirubin Dipstick Negative (Negative); Urine Clarity Clear (Clear); Urine Urobilinogen Normal (Normal)
[2020-02-01 19:10] LABS: Bacteria RARE /hpf (None Seen); Squamous Epithelial Cells - UA 0-5 SEEN /hpf (5-10)
[2020-02-01 20:18] LABS: Chlamydia Trachomatis by PCR Negative (Negative); Probe Check PASS; Sample Adequacy Control PASS; Specimen Processing Control PASS
== END | disposition home or self-care (01) ==
LOC: LABSPEC 16:12
PROVIDERS: PCP Family Medicine; Referring Provider Family Medicine; Visit Provider Registered Nurse
DX: Z11.3 Encounter for screening for infections with a predominantly sexual mode of transmission (principal)
CPT/HCPCS: 81001; 87491

== ENCOUNTER → 2020-05-05 10:09 | Outpatient (CLI) | payer OTHER, SELFPAY ==
[2020-05-05 12:24] LABS: Erythrocyte Sedimentation Rate 33 mm/hr (0-20)
[2020-05-05 12:25] LABS: Hematocrit 40.1 % (37-47); Hemoglobin 12.4 g/dL (12.0-15.0); Mean Corp Hgb Conc 30.9 g/dL (32-36); Mean Corpuscular Volume 87.2 fL (81-99); Mean Platelet Vol. 9.2 fl (6.2-12.0); Platelet Count 428 K/mm3 (150-450); RBC Distribution Width SD 44.8 fl (35.1-43.9); White Blood Count 10.5 K/mm3 (4.4-11.0)
[2020-05-05 12:28] LABS: Vitamin D,25 Hydroxy 24.2 ng/mL
[2020-05-05 12:39] LABS: Anion Gap 8 (5-15); BUN 11 mg/dL (7-18); BUN/Creat Ratio 10.7 RATIO (10-20); CRP 9.65 mg/L (0.0-3.0); Calcium,Total 8.8 mg/dL (8.5-10.1); Chloride 105 mmol/L (98-107); Creatinine, Serum 1.03 mg/dL (0.55-1.02); EST Glomerular Filtration Rate 72 mL/min (>60); Est Glom Filt Rate - Afr Amer 87 mL/min (>60); Glucose 78 mg/dL (74-106); Magnesium 1.8 mg/dL (1.6-2.6); Potassium 3.9 mmol/L (3.5-5.1); Sodium Level 139 mmol/L (136-145); T4 Free Direct 1.15 ng/dL (0.76-1.46); Thyroid Stim Hormone (TSH) 2.22 uIU/mL (0.358-3.74)
[2020-05-06 13:33] LABS: ANTINUCLEAR ANTIBODIES DIRECT Negative (Negative)
== END ==
PROVIDERS: PCP Family Medicine; Visit Provider Family Medicine
DX: E03.9 Hypothyroidism, unspecified (principal); R25.3 Fasciculation; E55.9 Vitamin D deficiency, unspecified
CPT/HCPCS: 36415; 80048; 82306; 83735; 84439; 84443; 85027; 85652; 86038; 86140

== ENCOUNTER → 2020-07-11 16:55 | Outpatient (CLI) | payer OTHER, SELFPAY ==
--- NOTE | 2020-07-11 16:57 | RAD_ITS ---
STUDY: X-RAY - LEFT WRIST REASON FOR EXAM: Female, 19 years old. Left wrist pain for 2 days. Patient woke up with pain. TECHNIQUE: 3 view(s) of the wrist were obtained. COMPARISON: None. FINDINGS: Normal visualized distal radius and ulna. Normal radiocarpal articulation. Normal distal radioulnar articulation. Normal carpal bones. Normal carpal articulations. Normal carpometacarpal articulation of the thumb. Normal second through fifth carpometacarpal articulations. Normal visualized metacarpal bones. The soft tissue structures are unremarkable. RAD/Wrist min 3 Views IMPRESSION: Normal x-ray examination of the wrist. Electronically Signed: Shaq Olivares DO at 17:06 EST Tel [phone], Service support ,
== END ==
PROVIDERS: PCP Family Medicine; Referring Provider Physician Assistant Surgical; Visit Provider Physician Assistant Surgical
DX: S66.912A Strain of unspecified muscle, fascia and tendon at wrist and hand level, left hand, initial encounter (principal)
CPT/HCPCS: 73110

== ENCOUNTER → 2020-12-09 | Outpatient (CLI) | payer OTHER, SELFPAY ==
[2020-10-11 09:02] VITALS: BMI 51.4
[2020-12-11 06:08] LABS: Chlamydia By Nucleic Acid AMP Positive (Negative)
[2020-12-11 07:38] LABS: Gonococcus By Nucleic Acid AMP Negative (Negative)
[2020-12-11 13:03] LABS: HPV Reflexed? NOT INDICATED
== END | disposition home or self-care (01) ==
LOC: LABSPEC 10:56
PROVIDERS: PCP Family Medicine; Visit Provider Obstetrics & Gynecology
DX: Z12.4 Encounter for screening for malignant neoplasm of cervix (principal); Z11.3 Encounter for screening for infections with a predominantly sexual mode of transmission
CPT/HCPCS: 87491; 87591; 88175; G0145

== ENCOUNTER → 2020-12-16 16:08 | Outpatient (CLI) | payer OTHER, SELFPAY ==
[2020-10-11 09:02] VITALS: BMI 51.4
== END ==
PROVIDERS: PCP Family Medicine; Visit Provider Obstetrics & Gynecology
DX: E28.2 Polycystic ovarian syndrome (principal)
CPT/HCPCS: 36415; 84144

== ENCOUNTER → 2021-02-09 08:36 | Outpatient (CLI) | payer OTHER, SELFPAY ==
--- NOTE | 2021-02-09 09:00 | RAD_ITS ---
INDICATION: EORDER EXAMINATION/TECHNIQUE: X-RAY - XR Abdomen Series W/ Chest 1 View COMPARISON: None FINDINGS: --Chest: LINES/DEVICES: None. LUNGS: No evidence of edema or effusion. No pneumothorax. Mild bronchial wall thickening is seen, no evidence of focal infiltrate or consolidation.. MEDIASTINUM AND CARDIOVASCULAR STRUCTURES: Cardiac silhouette not enlarged. Central airways and mediastinal contour are unremarkable. BONES AND SOFT TISSUES: No acute findings. --Abdomen: BOWEL GAS PATTERN: Non-obstructive. No bowel or stomach distention. Scattered stool visualized in the large bowel. FREE AIR: None visualized. ORGANOMEGALY: Not seen. CALCIFICATIONS: No abnormal calcifications observed. BONES AND SOFT TISSUES: No acute findings. RAD/Acute Abdomen Inc Chest IMPRESSION: No evidence of acute chest pathology. Scattered stool visualized in the large bowel, no evidence of acute abdominal pathology. Electronically Signed: Vic Braga MD at 11:00 EDT Tel , Service support ,
[2021-02-09 10:00] LABS: Hematocrit 39.3 % (37-47); Hemoglobin 12.2 g/dL (12.0-15.0); Mean Corpuscular Hgb 28.6 pg (27.0-32.0); Mean Platelet Vol. 9.7 fl (6.2-12.0); Platelet Count 328 K/mm3 (150-450); RBC Distribution Width CV 13.9 % (11.6-14.6); RBC Distribution Width SD 47.4 fl (35.1-43.9); Red Blood Count 4.27 M/mm3 (4.2-5.4); White Blood Count 7.5 K/mm3 (4.4-11.0)
[2021-02-09 10:26] LABS: Vitamin B12 566 pg/mL (211-911); Vitamin D,25 Hydroxy 49.1 ng/mL
[2021-02-09 10:45] LABS: Anion Gap 8 (5-15); BUN 7 mg/dL (7-18); BUN/Creat Ratio 7.6 RATIO (10-20); Calcium,Total 8.9 mg/dL (8.5-10.1); Chloride 108 mmol/L (98-107); Creatinine, Serum 0.92 mg/dL (0.55-1.02); EST Glomerular Filtration Rate 81 mL/min (>60); Est Glom Filt Rate - Afr Amer 98 mL/min (>60); Glucose 123 mg/dL (74-106); Iron 40 ug/dL (50-170); Magnesium 2.1 mg/dL (1.6-2.6); Potassium 4.1 mmol/L (3.5-5.1); Sodium Level 141 mmol/L (136-145); Thyroid Stim Hormone (TSH) 0.23 uIU/mL (0.358-3.74)
[2021-02-15 13:07] LABS: Vitamin B1, Thiamine 96.8 nmol/L (66.5-200.0)
[2021-02-15 13:51] LABS: Zinc, Plasma or Serum 71 ug/dL (44-115)
== END ==
PROVIDERS: PCP Family Medicine; Referring Provider Family Medicine; Visit Provider Family Medicine
DX: R10.9 Unspecified abdominal pain (principal); Z98.84 Bariatric surgery status
CPT/HCPCS: 36415; 74022; 80048; 82306; 82607; 83540; 83735; 84425; 84443; 84630; 85027

== ENCOUNTER → 2021-03-19 | Outpatient (CLI) | payer OTHER, SELFPAY | END | disposition home or self-care (01) | PROVIDERS: PCP Family Medicine; Referring Provider Family Medicine; Visit Provider Family Medicine | DX: R05.9 Cough, unspecified (principal); J02.9 Acute pharyngitis, unspecified | CPT/HCPCS: 87633; 87635; U0005; U0003 ==

== ENCOUNTER → 2021-03-23 | Outpatient (CLI) | payer OTHER, SELFPAY | END | disposition home or self-care (01) | LOC: LABSPEC 10:25 | PROVIDERS: PCP Family Medicine; Visit Provider Physician Assistant | DX: J02.9 Acute pharyngitis, unspecified (principal) | CPT/HCPCS: 87081 ==

== ENCOUNTER 2021-07-13 14:43 | Outpatient (CLI) | payer OTHER, SELFPAY ==
[2021-07-13 18:05] LABS: Absolute Lymphocyte Count 2.02 X10^3/uL (0.83-4.51); Absolute Neutrophil Count 4.9 X10^3/uL (2.0-7.7); Basophil# 0.04 X10^3/uL; Basophil% 0.5 % (0-1); Eosinophil# 0.09 X10^3/uL; Eosinophils% 1.2 % (0-5); Hematocrit 38.6 % (37-47); Lymphocyte # 2.02 X10^3/ul (0.83-4.51); Lymphocyte % 26.7 % (19-41); Mean Corp Hgb Conc 31.1 g/dL (32-36); Mean Corpuscular Hgb 28.6 pg (27.0-32.0); Mean Corpuscular Volume 92.1 fL (81-99); Mean Platelet Vol. 9.5 fl (6.2-12.0); Monocyte# 0.49 X10^3/uL; Monocyte% 6.5 % (0-10); NRBC Flagged by Analyzer 0 % (0-5); Neutrophil # 4.89 X10^3/uL (2.7-7.7); Neutrophil % 64.6 % (47-70); Platelet Count 332 K/mm3 (150-450); RBC Distribution Width CV 12.9 % (11.6-14.6); RBC Distribution Width SD 43.7 fl (35.1-43.9); Red Blood Count 4.19 M/mm3 (4.2-5.4); White Blood Count 7.6 K/mm3 (4.4-11.0)
[2021-07-13 18:36] LABS: Vitamin B12 412 pg/mL (211-911); Vitamin D,25 Hydroxy 35.6 ng/mL
[2021-07-13 18:40] LABS: Hemoglobin A1c 4.9 % (3.8-5.6)
[2021-07-13 19:08] LABS: ALB/GLOB Ratio 1.1 RATIO (0.9-2.4); AST(SGOT) 13 U/L (15-37); Alanine Aminotransfer ALT/SGPT 19 U/L (13-56); Albumin, Serum 3.4 g/dL (3.2-5.0); Alkaline Phosphatase 70 U/L (45-117); Anion Gap 5 (5-15); BUN 9 mg/dL (7-18); BUN/Creat Ratio 9.9 RATIO (10-20); Calcium,Total 8.3 mg/dL (8.5-10.1); Chloride 110 mmol/L (98-107); Cholesterol 134 mg/dL (200); Creatinine, Serum 0.91 mg/dL (0.55-1.02); EST Glomerular Filtration Rate 82 mL/min (>60); Est Glom Filt Rate - Afr Amer 100 mL/min (>60); Ferritin 45 ng/mL (8-252); Globulin 3.2 g/dL (2.2-4.2); Glucose 75 mg/dL (74-106); High Density Lipoprotein 39 mg/dL; Iron 94 ug/dL (50-170); Iron Binding Capacity,Total 322 ug/dL (250-450); Potassium 4.3 mmol/L (3.5-5.1); Protein, Total 6.6 g/dL (6.4-8.2); Sodium Level 142 mmol/L (136-145); T4 Free Direct 0.99 ng/dL (0.76-1.46); Thyroid Stim Hormone (TSH) 2.73 uIU/mL (0.358-3.74); Triglycerides 89 mg/dL; Very Low Density Lipoprotein 18 mg/dL (5-40)
[2021-07-14 08:20] LABS: PTHIN 63.9 pg/mL (18.4-80.1)
[2021-07-19 23:01] LABS: Vitamin B1, Thiamine 99.4 nmol/L (66.5-200.0)
== END 2021-07-13 23:59 | disposition home or self-care (01) ==
LOC: MTLAB 14:47
PROVIDERS: PCP Family Medicine; Referring Provider Family Medicine; Visit Provider Family Medicine
DX: E03.9 Hypothyroidism, unspecified (principal); Z98.84 Bariatric surgery status; Z13.220 Encounter for screening for lipoid disorders
CPT/HCPCS: 80053; 80061; 82306; 82607; 82728; 82746; 83036; 83540; 83550; 83970; 84425; 84439; 84443; 85025

== ENCOUNTER → 2021-09-03 | Outpatient (CLI) | payer OTHER, SELFPAY | END | disposition home or self-care (01) | LOC: LABSPEC 15:32 | PROVIDERS: PCP Family Medicine; Referring Provider Family Medicine; Visit Provider Family Medicine | DX: Z71.89 Other specified counseling (principal) | CPT/HCPCS: 87635; U0003; U0005 ==

== ENCOUNTER 2021-09-07 15:57 | Emergency (ER) | payer OTHER, SELFPAY ==
[2021-09-07 15:58] VITALS: BP 134/63; PULSE 79; RESP 18; TEMP 36.4; O2SAT 99; BMI 34.7
--- NOTE | 2021-09-07 16:09 | US_ITS ---
STUDY: FIRST TRIMESTER OBSTETRICAL ULTRASOUND EXAMINATION OF 1710 HOURS ON 09/07/2021 REASON FOR EXAM: Female, 20 years old pain with 1st trimester LMP: 08/01/2021. TECHNIQUE: Transabdominal and endovaginal. TECHNICAL QUALITY: Adequate. PRIOR ULTRASOUND: None. FINDINGS: The uterus is of normal size and configuration. It measures 7.5 cm splenic by 4.7 cm in AP diameter by 3.5 cm in transverse diameter. There is no evidence of uterine fibroids. The cervix is closed. There is a 21 mm thickened endometrium. There is no evidence of an intrauterine . The right ovary measures 2.5 cm x 2.3 cm x 1.3 cm and the left ovary measures 4.1 cm x 2.6 cm x 2.3 cm. There is a 1.9 cm x 1.4 cm x 2.3 cm complex solid structure with hypervascularity in the right adnexa adjacent to the right ovary or in the right fallopian tube. An ectopic cannot be excluded. There is no evidence of ovarian torsion. The moderate amount of fluid in the cul-de-sac. There is incidental finding of multiple small gallstones in the gallbladder. There is a tiny amount of fluid in Elizabeth''s pouch. Right kidney has normal appearance. US/Transvaginal w/Preg US IMPRESSION: 1. No evidence of an intrauterine . 2. Presence of a 1.9 cm x 1.4 cm x 2.3 cm complex solid structure with hypervascularity in the right adnexa adjacent to the right ovary are in the right fallopian tube. Cannot exclude an ectopic . Addition, there is a moderate amount of fluid in the cul-de-sac. 3. Otherwise, normal-appearing ovaries without torsion. 4. Presence of a 21 mm thickened endometrium. No other uterine abnormalities. 5. Presence of multiple small gallstones in the gallbladder and a tiny amount of fluid in Morison''s pouch. 6. Normal right kidney. Electronically Signed: Alexander Saravia MD at 18:19 EDT ,
--- NOTE | 2021-09-07 16:16 | ED.VIS.FEGU ---
HPI HPI - Female History of Present Illness Chief Complaint: Abd Pain Informant: patient Pain Pain: Positive for Pelvic Pain Onset: Days Context: Gradual Onset Timing: Intermittent Quality: Positive for Cramping Location: RLQ and Suprapubic Maximum Severity: Mild Bleeding Issue: Negative for Vaginal bleeding, Passing clots and Passing tissue Associated Symptoms Test: Positive Sexually: Positive for Active P: 1 Ab: 0 Narrative Narrative: 20-year-old female G2, P1 Ab0. States her last menstrual period was August 01. To home test was positive also want to a center and they told her it was positive also. She has developed right adnexal pain in the last 2 days. She denies any vaginal bleeding or discharge. She denies any dysuria. No fever or chills. Her first she delivered vaginally full-term without any complications. She does have a history of polycystic ovarian syndrome. She denies any fevers. She denies any other symptoms. Prior similar symptoms: No Recent Illness/Hospitalization: No PFSH PFSH Medical History Acute pharyngitis, unspecified Insulin resistance PCOS (polycystic ovarian syndrome) Secondary oligomenorrhea Subclinical hypothyroidism Home Medications escitalopram oxalate 20 mg tablet 20 mg PO DAILY tab 07/11/20 [History Last Taken Unknown] levothyroxine 100 mcg tablet 88 mcg PO DAILY tab 07/11/20 [History Last Taken Unknown] mutivitamin patch TRANSDERMAL DAILY 09/07/21 [History Last Taken Unknown] [id number] [] tab PO 09/07/21 [History Last Taken Unknown] Allergy/AdvReac Type Severity Reaction Status Date / Time adhesive tape AdvReac Mild Blisters Verified 09/07/21 16:00 Family History Grandmother Ovarian cancer Surgical History H/O gastric sleeve H/O wisdom tooth extraction History of placement of ear tubes Social History current occupation: [employer] Smoking Status: Never smoker alcohol intake: never substance use type: does not use ROS ROS ED ROS Narrative Denies except for pelvic pain. Review of Systems ROS Unobtainable: Denies due to encephalopathy Constitutional Constitutional ED: Denies fever(s) Eyes Eyes: Denies change in vision ENT ENT ED: Denies ear pain Cardiovascular Cardiovascular: Denies chest pain Respiratory/Chest Respiratory/Chest: Denies dyspnea Gastrointestinal Gastrointestinal: Denies abdominal pain Genitourinary Genitourinary ED: Denies dysuria Musculoskeletal Musculoskeletal: Denies myalgias Integumentary Denies rash Neurologic Neurologic: Denies headache(s) Psychiatric Psychiatric: Denies depression Endocrine Endocrinology: Denies polyuria Hematologic/Lymphatic Hematologic/Lymphatic: Denies easy bruising Allergic/Immunologic Allergic/Immunologic ED: Denies urticaria EXAM Physical Exam Narrative Exam Narrative: 1-year-old female no acute distress vital signs stable afebrile. H EENT exam unremarkable. Lungs clear to auscultation. Heart regular rhythm rate about 80 no murmur. Abdomen soft nondistended normal bowel sounds no peritoneal signs. Just to the right of the suprapubic region there is tenderness to deep palpation. Not at Allison's point. No peritoneal signs. The rest the abdomen is completely nontender. Rest of exam is unremarkable. Const Vital Signs: 09/07/21 15:58 09/07/21 17:58 Temperature 97.6 F L Temperature Source Temporal Pulse Rate 79 84 Respiratory Rate 18 18 Blood Pressure 134/63 H 120/62 Blood Pressure Mean 86 81 Pulse Ox 99 94 Oxygen Delivery Method Room Air Room Air Positive well nourished and well developed; Negative for cachectic, contractures or unkempt General Appearance ED: well developed and NAD; Negative for unkempt, cachectic, contractures or pallor Nutritional Appearance: Negative for cachectic HEENT Reports moist mucous membranes Negative for trauma or tenderness Eyes PERRL and EOMs intact bilaterally Neck no lymphadenopathy, supple and no JVD Thyroid: Negative for tender Chest Wall inspection of chest normal and palpation of chest normal Resp normal respiratory effort and clear to auscultation bilaterally Effort and Inspection: Negative for pain with movement Auscultation: Negative for rales, rhonchi or wheezes Cardio regular rate, regular rhythm, S1 normal heart sound, no murmurs and no JVD Rate: Negative for tachycardic Rhythm: Negative for abnormal rhythm GI normal to inspection, nondistended, normoactive bowel sounds, soft to palpation, non-tender, non-distended and no masses Auscultation: normoactive bowel sounds Palpation: Negative for tender, guarding or rigid no CVA tenderness Back/Spine no CVA tenderness General Back: Negative for CVA tenderness Extremity normal to inspection and full ROM General Extremety ED: Negative for edema or tenderness General Extremity: Negative for edema Neuro oriented x3 Sensorium / Orientation: alert, oriented to person, oriented to place and oriented to time Motor Exam: strength 5/5 throughout Psych mental status grossly normal Appearance: Negative for unkempt Mood & Affect: Negative for depressed Skin no rashes or lesions noted and no wounds General Skin Exam: Negative for jaundice or pallor MDM MDM MDM Narrative Medical decision making narrative: 20-year-old female with pelvic pain reportedly with no care as of yet. Client and ultrasound along with urinalysis to be obtained. She has had no bleeding. Repeat exam patient is doing well at 6:38 PM. I did discuss all the test results with Dr. Bernice Oro of [place] [employer]. Given the patient has known pain, stable vital signs and blood counts they will see her in the office tomorrow to get a repeat exam and further evaluation for either an early versus possible ectopic. Patient will be given instructions to return if increasing pain, bleeding, lightheaded or feels worse. Lab Data Attestation: I reviewed the patient's lab results. Lab results narrative: CBC normal white count 9. H&H 12 and 38. Platelets 378. UA negative. No signs of infection. Quant is low at 155. Ultrasound as read by the radiologist showed a complex cystic structure in the right adnexa that they cannot tell if this is an ectopic or not. Clinically on exam she has no adnexal pain on pelvic exam. There is no blood or discharge. Pelvic was done with a female nurse present in room. Labs: Laboratory Results - last 24 hr 09/07/21 09/07/21 09/07/21 16:23 16:23 16:25 WBC 9.7 RBC 4.20 Hgb 12.1 Hct 38.6 MCV 91.9 MCH 28.8 MCHC 31.3 L RDW Std Deviation 43.4 RDW Coeff of Adenike 12.9 Plt Count 378 MPV 8.9 Immature Gran % (Auto) 0.500 Neut % (Auto) 61.7 Lymph % (Auto) 29.3 Griggs % (Auto) 6.8 Eos % (Auto) 1.2 Baso % (Auto) 0.5 Absolute Neuts (auto) 6.0 Absolute Lymphs (auto) 2.85 Nucleated RBC % 0 HCG, Quant 155 H Urine Color Yellow Urine Clarity Clear Urine pH 6.0 Ur Specific Maury 1.010 Urine Protein Negative Urine Glucose (UA) Normal Urine Ketones Negative Urine Occult Blood Negative Urine Nitrite Negative Urine Bilirubin Negative Urine Urobilinogen Normal Ur Leukocyte Esterase 500 H Urine RBC 0 SEEN Urine WBC 0-5 SEEN Ur Squamous Epith Cells 0-5 SEEN Urine Bacteria 0 SEEN Urine Mucus 0 SEEN Radiography Diagnostic Testing: Clinical Impression(s) from Imaging Studies Obstetrics Ultrasound 09/07/21 16:09 IMPRESSION: 1. No evidence of an intrauterine . 2. Presence of a 1.9 cm x 1.4 cm x 2.3 cm complex solid structure with hypervascularity in the right adnexa adjacent to the right ovary are in the right fallopian tube. Cannot exclude an ectopic . Addition, there is a moderate amount of fluid in the cul-de-sac. 3. Otherwise, normal-appearing ovaries without torsion. 4. Presence of a 21 mm thickened endometrium. No other uterine abnormalities. 5. Presence of multiple small gallstones in the gallbladder and a tiny amount of fluid in Morison''s pouch. 6. Normal right kidney. Electronically Signed: Alexander Saravia MD at 18:19 EDT Reading Location ID and State: [address] [place] [address] Tel , Service support , Discharge Plan Triage Chief Complaint: Abd Pain ED Provider: Brent Garcia Dx/Rx/DC Orders Clinical Impression: Pelvic pain, First trimester Instructions: ED Pelvic Pain, Unknown Cause Prescriptions: No Action levothyroxine 100 mcg tablet 88 mcg PO DAILY RF: 0 escitalopram oxalate 20 mg tablet 20 mg PO DAILY RF: 0 mutivitamin patch patch transdermal DAILY RF: 0 1 mg Tablet PO RF: 0 Primary Care Provider: Tobias Cotto Referrals: Tobias Cotto MD [Primary Care Provider] - Loretta Polk MD [STAFF PHYSICIAN] - 1 Day Activity Restrictions/Additional Instructions: Currently we do not know this just an early and I cannot see it yet on ultrasound or if you could have an ectopic which is a in the fallopian tube. I discussed all your test results with the [employer] on-call for [place] [employer]. They will see you in the office tomorrow or Tuesday. If you have increasing pain, heavy vaginal bleeding, feel lightheaded or real dizzy you need to return to be reevaluated. Tylenol for pain. Call your [employer]'s office tomorrow morning to be seen tomorrow no later than Tuesday. Disposition Disposition: Home, Self Care
[2021-09-07 16:30] LABS: Absolute Lymphocyte Count 2.85 X10^3/uL (0.83-4.51); Basophil# 0.05 X10^3/uL; Basophil% 0.5 % (0-1); Eosinophil# 0.12 X10^3/uL; Eosinophils% 1.2 % (0-5); Hematocrit 38.6 % (37-47); Hemoglobin 12.1 g/dL (12.0-15.0); Lymphocyte # 2.85 X10^3/ul (0.83-4.51); Lymphocyte % 29.3 % (19-41); Mean Corp Hgb Conc 31.3 g/dL (32-36); Mean Corpuscular Hgb 28.8 pg (27.0-32.0); Mean Corpuscular Volume 91.9 fL (81-99); Mean Platelet Vol. 8.9 fl (6.2-12.0); Monocyte# 0.66 X10^3/uL; Monocyte% 6.8 % (0-10); NRBC Flagged by Analyzer 0 % (0-5); Neutrophil # 5.99 X10^3/uL (2.7-7.7); Neutrophil % 61.7 % (47-70); Platelet Count 378 K/mm3 (150-450); RBC Distribution Width CV 12.9 % (11.6-14.6); RBC Distribution Width SD 43.4 fl (35.1-43.9); White Blood Count 9.7 K/mm3 (4.4-11.0)
[2021-09-07 16:41] LABS: Bacteria 0 SEEN /hpf (None Seen); Mucous, Urine 0 SEEN /hpf (<or=2+); Red Blood Cells-Urine 0 SEEN /hpf (0-5)
[2021-09-07 16:46] LABS: Color, Urine Yellow (Yellow); Glucose, Dipstick Normal (Normal); Ketone-Dipstick Negative (Negative); Leukocyte Esterase-Dipstick 500 /ul (Negative); Nitrite-Dipstick Negative (Negative); Occult Blood-Urine Negative /ul (Negative); Protein-Dipstick Negative (Negative); Urine Bilirubin Dipstick Negative (Negative); Urine Clarity Clear (Clear); Urine Urobilinogen Normal (Normal)
[2021-09-07 17:01] LABS: Squamous Epithelial Cells - UA 0-5 SEEN /hpf (5-10); White Blood Cells 0-5 SEEN /hpf (0-5)
[2021-09-07 17:28] LABS: hCG Titer Quant., Serum 155 mIU/mL (1-3)
[2021-09-07 17:58] VITALS: BP 120/62; PULSE 84; RESP 18; O2SAT 94
== END 2021-09-07 18:56 | disposition home or self-care (01) ==
PROVIDERS: Emergency Provider Emergency Medicine; PCP Family Medicine; Visit Provider Emergency Medicine
DX: O26.891 Other specified pregnancy related conditions, first trimester (principal); R10.2 Pelvic and perineal pain; Z3A.00 Weeks of gestation of pregnancy not specified; O99.281 Endocrine, nutritional and metabolic diseases complicating pregnancy, first trimester; E28.2 Polycystic ovarian syndrome; E88.81 Metabolic syndrome and other insulin resistance; E03.8 Other specified hypothyroidism; Z79.899 Other long term (current) drug therapy; O99.891 Other specified diseases and conditions complicating pregnancy
CPT/HCPCS: 76817; 81001; 84702; 85025; 99283; A4216

== ENCOUNTER → 2021-09-10 | Outpatient (CLI) | payer OTHER, SELFPAY ==
[2021-09-10 11:28] LABS: Progesterone Level 21.12 ng/mL (See Comment)
[2021-09-10 11:29] LABS: ALB/GLOB Ratio 0.9 RATIO (0.9-2.4); AST(SGOT) 16 U/L (15-37); Alanine Aminotransfer ALT/SGPT 29 U/L (13-56); Albumin, Serum 3.5 g/dL (3.2-5.0); Alkaline Phosphatase 87 U/L (45-117); Anion Gap 3 (5-15); BUN 15 mg/dL (7-18); BUN/Creat Ratio 19.7 RATIO (10-20); Calcium,Total 9.1 mg/dL (8.5-10.1); Chloride 108 mmol/L (98-107); Creatinine, Serum 0.76 mg/dL (0.55-1.02); EST Glomerular Filtration Rate 101 mL/min (>60); Est Glom Filt Rate - Afr Amer 122 mL/min (>60); Globulin 3.7 g/dL (2.2-4.2); Glucose 89 mg/dL (74-106); Potassium 4.2 mmol/L (3.5-5.1); Protein, Total 7.2 g/dL (6.4-8.2); Sodium Level 139 mmol/L (136-145)
[2021-09-10 12:29] LABS: hCG Titer Quant., Serum 546 mIU/mL (1-3)
== END | disposition home or self-care (01) ==
LOC: WOBLAB 10:30
PROVIDERS: PCP Family Medicine; Visit Provider Obstetrics & Gynecology
DX: O02.81 Inappropriate change in quantitative human chorionic gonadotropin (hCG) in early pregnancy (principal)
CPT/HCPCS: 36415; 80053; 84144; 84702; 84703

== ENCOUNTER → 2021-09-12 | Outpatient (CLI) | payer OTHER, SELFPAY ==
[2021-09-12 12:29] LABS: hCG Titer Quant., Serum 1200 mIU/mL (1-3)
== END | disposition home or self-care (01) ==
LOC: LAB 10:53
PROVIDERS: PCP Family Medicine; Visit Provider Obstetrics & Gynecology
DX: Z34.81 Encounter for supervision of other normal pregnancy, first trimester (principal)
CPT/HCPCS: 36415; 84702

== ENCOUNTER → 2021-09-18 | Outpatient (CLI) | payer OTHER, SELFPAY ==
[2021-09-18 16:54] LABS: Absolute Lymphocyte Count 1.54 X10^3/uL (0.83-4.51); Absolute Neutrophil Count 7.2 X10^3/uL (2.0-7.7); Basophil# 0.03 X10^3/uL; Basophil% 0.3 % (0-1); Eosinophil# 0.11 X10^3/uL; Eosinophils% 1.1 % (0-5); Hematocrit 35.9 % (37-47); Hemoglobin 11.3 g/dL (12.0-15.0); Lymphocyte # 1.54 X10^3/ul (0.83-4.51); Mean Corp Hgb Conc 31.5 g/dL (32-36); Mean Corpuscular Volume 92.1 fL (81-99); Mean Platelet Vol. 9.4 fl (6.2-12.0); Monocyte# 0.64 X10^3/uL; Monocyte% 6.7 % (0-10); NRBC Flagged by Analyzer 0 % (0-5); Neutrophil # 7.22 X10^3/uL (2.7-7.7); Neutrophil % 75.3 % (47-70); Platelet Count 333 K/mm3 (150-450); RBC Distribution Width SD 43.6 fl (35.1-43.9); White Blood Count 9.6 K/mm3 (4.4-11.0)
[2021-09-18 17:00] LABS: Hemoglobin A1c 4.6 % (3.8-5.6)
[2021-09-18 17:05] LABS: Color, Urine Yellow (Yellow); Glucose, Dipstick Normal (Normal); Ketone-Dipstick Negative (Negative); Leukocyte Esterase-Dipstick Negative /ul (Negative); Nitrite-Dipstick Negative (Negative); Occult Blood-Urine Negative /ul (Negative); Protein-Dipstick Negative (Negative); Specific Gravity, Urine 1.015 (1.002-1.030); Urine Bilirubin Dipstick Negative (Negative); Urine Clarity Clear (Clear); Urine Urobilinogen Normal (Normal)
[2021-09-18 17:12] LABS: Amphetamine Urine VISTA NEGATIVE (<1000 ng/mL); Barbiturate Urine VISTA NEGATIVE (< 200 ng/mL); Benzodiazepine Urine VISTA NEGATIVE (< 200 ng/mL); Cocaine Urine VISTA NEGATIVE (< 300 ng/mL); Ecstacy Urine VISTA NEGATIVE (< 500 ng/mL); Methadone Urine VISTA NEGATIVE (< 300 ng/mL); PCP Urine VISTA NEGATIVE (< 25 ng/mL); THC Urine VISTA NEGATIVE (< 50 ng/mL); Vista UDS pH Range 5
[2021-09-18 17:31] LABS: ALB/GLOB Ratio 0.9 RATIO (0.9-2.4); AST(SGOT) 12 U/L (15-37); Alanine Aminotransfer ALT/SGPT 23 U/L (13-56); Albumin, Serum 3.3 g/dL (3.2-5.0); Alkaline Phosphatase 77 U/L (45-117); Anion Gap 4 (5-15); BUN 10 mg/dL (7-18); BUN/Creat Ratio 14.2 RATIO (10-20); Calcium,Total 8.6 mg/dL (8.5-10.1); Chloride 108 mmol/L (98-107); EST Glomerular Filtration Rate 110 mL/min (>60); Est Glom Filt Rate - Afr Amer 134 mL/min (>60); Ferritin 49 ng/mL (8-252); Globulin 3.6 g/dL (2.2-4.2); Glucose 71 mg/dL (74-106); Iron 47 ug/dL (50-170); Iron Binding Capacity,Total 316 ug/dL (250-450); Protein, Total 6.9 g/dL (6.4-8.2); Sodium Level 138 mmol/L (136-145); Thyroid Stim Hormone (TSH) 2.06 uIU/mL (0.358-3.74)
[2021-09-21 10:04] LABS: HIV - WCH Non-Reactive (Nonreactive); Hepatitis B Surface Antigen Non-Reactive (Nonreactive); Hepatitis C Antibody Non-Reactive (Nonreactive); Rubella IgG Reactive (Nonreactive); Syphilis Antibodies Non-reactive; Vitamin B12 609 pg/mL (211-911); Vitamin D,25 Hydroxy 29.6 ng/mL
[2021-09-21 21:07] LABS: Chlamydia By Nucleic Acid AMP Negative (Negative)
[2021-09-21 21:47] LABS: Gonococcus By Nucleic Acid AMP Negative (Negative)
[2021-09-22 22:15] LABS: Zinc, Plasma or Serum 70 ug/dL (44-115)
== END | disposition home or self-care (01) ==
PROVIDERS: PCP Family Medicine; Visit Provider Obstetrics & Gynecology
DX: Z34.81 Encounter for supervision of other normal pregnancy, first trimester (principal)
CPT/HCPCS: 80053; 80307; 81002; 82306; 82607; 82728; 83036; 83540; 83550; 84443; 84630; 85025; 86703; 86762; 86780; 86803; 87086; 87088; 87340; 87491; 87591

== ENCOUNTER → 2022-06-16 | Outpatient (CLI) | payer OTHER, SELFPAY ==
[2022-06-16 18:21] LABS: Thyroid Stim Hormone (TSH) 1.28 uIU/mL (0.358-3.74)
== END | disposition home or self-care (01) ==
LOC: MTLAB 15:20
PROVIDERS: PCP Family Medicine; Referring Provider Family Medicine; Visit Provider Family Medicine
DX: E03.9 Hypothyroidism, unspecified (principal)
CPT/HCPCS: 36415; 84439; 84443

== ENCOUNTER → 2022-08-25 | Outpatient (CLI) | payer OTHER, SELFPAY ==
[2022-08-25 16:28] LABS: Hematocrit 40.9 % (37-47); Hemoglobin 12.7 g/dL (12.0-15.0); Mean Corp Hgb Conc 31.1 g/dL (32-36); Mean Corpuscular Hgb 29.1 pg (27.0-32.0); Mean Corpuscular Volume 93.6 fL (81-99); Mean Platelet Vol. 9.1 fl (6.2-12.0); Platelet Count 341 K/mm3 (150-450); RBC Distribution Width CV 12.9 % (11.6-14.6); RBC Distribution Width SD 44.1 fl (35.1-43.9); Red Blood Count 4.37 M/mm3 (4.2-5.4); White Blood Count 7.3 K/mm3 (4.4-11.0)
[2022-08-25 16:47] LABS: Hemoglobin A1c 4.5 % (3.8-5.6)
[2022-08-25 17:00] LABS: Erythrocyte Sedimentation Rate 25 mm/hr (0-30)
[2022-08-25 17:26] LABS: AST(SGOT) 57 U/L (15-37); Alanine Aminotransfer ALT/SGPT 311 U/L (13-56); Albumin, Serum 3.6 g/dL (3.2-5.0); Alkaline Phosphatase 129 U/L (45-117); Anion Gap 3 (5-15); BUN 12 mg/dL (7-18); Calcium,Total 8.8 mg/dL (8.5-10.1); Chloride 106 mmol/L (98-107); EST Glomerular Filtration Rate 95 mL/min (>60); Est Glom Filt Rate - Afr Amer 115 mL/min (>60); Globulin 3.5 g/dL (2.2-4.2); Glucose 84 mg/dL (74-106); Potassium 4.1 mmol/L (3.5-5.1); Protein, Total 7.1 g/dL (6.4-8.2); Sodium Level 136 mmol/L (136-145); T4 Free Direct 0.83 ng/dL (0.76-1.46); Thyroid Stim Hormone (TSH) 1.53 uIU/mL (0.358-3.74)
[2022-08-26 09:20] LABS: GGTP 293 U/L (5-55)
[2022-08-26 12:53] LABS: Bilirubin, Direct 0.08 mg/dL (0.00-0.30)
[2022-08-27 08:25] LABS: HEPATITIS B SURFACE AG Negative (Negative); Hep C Antibodies Non Reactive (Non Reactive); Hepatitis A IgM Antibody Negative (Negative); Hepatitis B Core AB IgM Negative (Negative)
== END | disposition home or self-care (01) ==
LOC: MFPLAB 15:27
PROVIDERS: PCP Family Medicine; Visit Provider Family Medicine
DX: R79.89 Other specified abnormal findings of blood chemistry (principal); F41.9 Anxiety disorder, unspecified; R63.5 Abnormal weight gain; E03.9 Hypothyroidism, unspecified
CPT/HCPCS: 36415; 80053; 80074; 82248; 82533; 82977; 83036; 84439; 84443; 84481; 85027; 85652

== ENCOUNTER → 2022-08-30 | Outpatient (CLI) | payer OTHER, SELFPAY ==
--- NOTE | 2022-08-30 09:50 | US_ITS ---
STUDY: ABDOMINAL ULTRASOUND - RIGHT UPPER QUADRANT REASON FOR VISIT: Female, 21 years old elevated LFT TECHNIQUE: Ultrasound evaluation of the right upper quadrant was performed with real-time and static virk-scale imaging. TECHNICAL QUALITY: Adequate. COMPARISON: None. FINDINGS: Liver: The liver measures 15.2 cm. There is increased echogenicity consistent with fatty infiltration. The bile ducts are within normal limits. There is hepatic color flow. The direction of portal flow is hepatopetal. There is no demonstrated mass lesion. Gallbladder: Normal distended gallbladder. The gallbladder wall measures 2.0 mm. There is a negative sonographic Renner''s sign. There is no pericholecystic fluid. There are multiple echogenic structures within the gallbladder, consistent with multiple small gallstones. Common Bile Duct (C.B.D.): The common bile duct measures 3.2 mm. Pancreas: Normal size of the head, body of the pancreas. The tail portion is obscured due to overlying bowel gas. There is normal echogenicity of the pancreas. There is no demonstrated pancreatic mass or cyst. Right Kidney: Normal size of the right kidney. The right kidney measures 10.9 cm x 5.7 cm x 5.3 cm. Normal renal cortex. The right cortex measures 1.8 cm. There is no demonstrated renal mass or cyst. There is no right hydronephrosis. US/Abdomen Limited IMPRESSION: Fatty infiltration of the liver. Multiple small gallstones. Electronically Signed: Johnny Morris MD at 11:09 EDT ,
== END | disposition home or self-care (01) ==
LOC: US 09:49
PROVIDERS: PCP Family Medicine; Referring Provider Family Medicine; Visit Provider Family Medicine
DX: R79.89 Other specified abnormal findings of blood chemistry (principal)
CPT/HCPCS: 76705

== ENCOUNTER → 2022-09-06 | Outpatient (CLI) | payer OTHER, SELFPAY ==
[2022-09-06 13:17] LABS: AST(SGOT) 19 U/L (15-37); Alanine Aminotransfer ALT/SGPT 53 U/L (13-56); Albumin, Serum 3.6 g/dL (3.2-5.0); Alkaline Phosphatase 110 U/L (45-117); Bilirubin, Direct 0.05 mg/dL (0.00-0.30); GGTP 151 U/L (5-55); Globulin 3.9 g/dL (2.2-4.2); Protein, Total 7.5 g/dL (6.4-8.2)
== END | disposition home or self-care (01) ==
LOC: MFPLAB 10:38
PROVIDERS: PCP Family Medicine; Visit Provider Family Medicine
DX: R79.89 Other specified abnormal findings of blood chemistry (principal)
CPT/HCPCS: 36415; 80076; 82977

== ENCOUNTER 2022-09-21 22:06 | Emergency (ER) | payer OTHER, SELFPAY ==
[2022-09-21 22:07] VITALS: BP 119/74; PULSE 77; RESP 15; TEMP 36.6; O2SAT 99; BMI 45.3
[2022-09-21] MEDS: Dicyclomine 20 MG/2 ML Vial IM (22:56)
[2022-09-21] MEDS: Ondansetron 4 MG/2 ML Vial IV (22:56)
[2022-09-21] MEDS: 0.9% Normal Saline 1,000 ML 1000 ML IV (22:57)
[2022-09-21] MEDS: Famotidine 200 MG/20 ML MDV 20 MG in 0.9% Normal Saline (Pres. free 8 ML 300 MG IV (23:07)
[2022-09-21 23:09] LABS: Absolute Lymphocyte Count 1.86 X10^3/uL (0.83-4.51); Absolute Neutrophil Count 3.8 X10^3/uL (2.0-7.7); Basophil# 0.05 X10^3/uL; Basophil% 0.8 % (0-1); Eosinophils% 1.6 % (0-5); Hematocrit 39.1 % (37-47); Hemoglobin 12.1 g/dL (12.0-15.0); Lymphocyte # 1.86 X10^3/ul (0.83-4.51); Lymphocyte % 29.7 % (19-41); Mean Corp Hgb Conc 30.9 g/dL (32-36); Mean Corpuscular Hgb 28.6 pg (27.0-32.0); Mean Corpuscular Volume 92.4 fL (81-99); Mean Platelet Vol. 8.8 fl (6.2-12.0); Monocyte# 0.43 X10^3/uL; Monocyte% 6.9 % (0-10); NRBC Flagged by Analyzer 0 % (0-5); Neutrophil # 3.78 X10^3/uL (2.7-7.7); Neutrophil % 60.4 % (47-70); Platelet Count 298 K/mm3 (150-450); RBC Distribution Width CV 12.6 % (11.6-14.6); RBC Distribution Width SD 42.7 fl (35.1-43.9); Red Blood Count 4.23 M/mm3 (4.2-5.4); White Blood Count 6.3 K/mm3 (4.4-11.0)
[2022-09-21 23:14] LABS: Color, Urine Yellow (Yellow); Glucose, Dipstick Normal (Normal); Ketone-Dipstick Negative (Negative); Leukocyte Esterase-Dipstick Negative /ul (Negative); Mucous, Urine 0 SEEN /hpf (<or=2+); Nitrite-Dipstick Negative (Negative); Occult Blood-Urine Negative /ul (Negative); Protein-Dipstick Negative (Negative); Red Blood Cells-Urine 0 SEEN /hpf (0-5); Urine Bilirubin Dipstick Negative (Negative); Urine Clarity Clear (Clear); Urine Urobilinogen Normal (Normal); White Blood Cells 0 SEEN /hpf (0-5)
--- NOTE | 2022-09-21 23:17 | EX.ED.DYSGE1 ---
HPI History of Present Illness Chief Complaint: Abd Pain Narrative Narrative: Patient is a 21-year-old female who is presenting to the ER with chief complaint of several months of right upper quadrant pain. Patient states that she gets right upper quadrant pain intermittently 2 or 3 times a week. Patient had a gastric sleeve done approximately 2 years ago at [facility] by Dr. Tiwari (sp?) Patient states that she was also in August and delivered in April of this past year. Patient was approximate 230 pounds when she delivery, now she is approximate 270 pounds. Patient has unknown weight gain, she has not followed up with Dr. Tiwari for unknown reason. Patient has been seeing her PCP. PCP has been doing outpatient lab work, gallbladder ultrasound, and now has a HIDA scan ordered in the next several weeks as well. Patient has not seen a surgeon for her gallbladder signs and symptoms. Patient was eating brautworst tonight for dinner. Patient is says that typically she will have her gallbladder attacks in the evening after dinner. Patient has not modified her diet recently last several months. Patient states she gets right upper quadrant pain that also cause mid scapular pain. Patient's had 2 episodes of nausea and vomiting tonight. Patient's significant other and child are at bedside as well. Patient has no urinary frequency urgency or burning. Patient does not believe that she is . Patient does have history of acid reflux, no ulcer disease that she knows of. Patient takes omeprazole daily. [facility] Medical History (Updated 09/22/22 @ 00:[address] Ayo Hines, DO) Acute bronchitis, unspecified Acute pharyngitis, unspecified COVID-19 Insulin resistance PCOS (polycystic ovarian syndrome) Secondary oligomenorrhea Subclinical hypothyroidism Home Medications escitalopram oxalate 20 mg tablet 20 mg PO DAILY 07/11/20 [History Last Taken Unknown] levothyroxine 100 mcg tablet 88 mcg PO DAILY 07/11/20 [History Last Taken Unknown] mutivitamin patch transdermal DAILY 09/07/21 [History Last Taken Unknown] yguynjfu-uyc-Yi-FA 1 mg tablet tab PO 09/07/21 [History Last Taken Unknown] azithromycin 250 mg tablet 250 mg PO QDAY #6 tabs 05/07/22 [Rx Last Taken Unknown] dexamethasone 6 mg tablet 6 mg PO DAILY #5 tabs 05/07/22 [Rx Last Taken Unknown] dicyclomine 10 mg capsule 20 mg PO TIDAC #10 CAPSULES 09/21/22 [Rx Last Taken Unknown] ondansetron 4 mg disintegrating tablet 4 mg PO Q4H PRN PRN Nausea #10 tabs 09/21/22 [Rx Last Taken Unknown] hydrocodone-acetaminophen 5-325mg 5mg-325mg 1 tab PO Q4H PRN PRN Pain 3 days #10 TABLETS 09/22/22 [Rx Last Taken Unknown] Allergy/AdvReac Type Severity Reaction Status Date / Time adhesive tape AdvReac Mild Blisters Verified 09/21/22 22:13 Family History Grandmother Ovarian cancer Surgical History H/O gastric sleeve H/O wisdom tooth extraction History of placement of ear tubes Social History current occupation: [employer] Smoking Status: Never smoker alcohol intake: never substance use type: does not use ROS ROS ED ROS Narrative REVIEW OF SYSTEMS: Unless otherwise stated in this report the patient's positive and negative responses for review of systems for constitutional, eyes, ENT, cardiovascular, respiratory, gastrointestinal, neurological, , musculoskeletal, and integument systems and related systems to the presenting problem are either stated in the history of present illness or were not pertinent or were negative for the symptoms and/or complaints related to the presenting medical problem. EXAM Physical Exam Narrative Exam Narrative: Vital signs reviewed and patient is not hypoxic. General: The patient appears well and in no apparent distress. Patient is resting comfortably on cart. Not toxic, lethargic, or listless. Skin: Warm, dry, no pallor noted. There is no rash noted. Head: Normocephalic, atraumatic Eye: Normal conjunctiva, no drainage, EOMI. PERRL. Ears, Nose, Mouth, and Throat: oral mucosa is moist. Nares patent. Mouth without vesicles. Ear canals patent. Tm's without Erythema Cardiovascular: Regular Rate and Rhythm, no murmurs, gallops, or rubs Respiratory: Patient is in no distress, no accessory muscle use, lungs are clear to auscultation, no wheezing, rales or rhonchi Back: non-tender, patient has no reproducible tenderness to palpation to mid scapular area, no rash. No CVA tenderness bilaterally to percussion. NO CTLS midline or paraspinal tenderness to palpation. GI: Soft, obese, mild tenderness to palpation to right upper quadrant, mild tenderness to palpation to mid epigastric area, no peritoneal signs, no flank pain, no rash. No tenderness to palpation, no masses appreciated. No rebound, guarding, or rigidity noted. Musculoskeletal: The patient has full range of motion of all extremities and joints with no difficulty. Patient has no motor, no sensory deficits. Neurological: A&O x4, normal speech, no focal neurological deficits. Psychiatric: Cooperative Const Vital Signs: 09/21/22 22:07 Temperature 97.9 F Temperature Source Temporal Pulse Rate 77 Respiratory Rate 15 Blood Pressure 119/74 Blood Pressure Mean 89 Pulse Ox 99 Oxygen Delivery Method Room Air MDM MDM MDM Narrative Medical decision making narrative: Patient appears to be having intermittent biliary colic 2-3 times a week for the past 2 or 3 months. Patient lab work shows no acute changes today. Patient understands need to follow-up with surgeon. [id number] Bowen. Reviewed patient's lab work on August 25, normal lab work on September 06, and abnormal elevation of AST, ALT and alk phos today. Patient had normal total bilirubin this evening. Patient was sent home with Sindy Berg Norco, Dr. Bowen agreed the patient could go home and call the office at 8:00 in the morning and be seen in the next day or 2 by himself for the midlevel to begin work-up and treatment plan. Patient's nausea has improved, pain has improved. Patient agrees to going home and will call the office in the morning. Patient will be referred to Dr. Bowen. Patient also was recommended to follow-up with her gastric sleeve physician at [facility], for her weight gain. Patient will continue taking omeprazole. Patient was sent home with Almita Berg to use as needed. Patient also follow-up with her PCP. No questions discharge Lab Data Labs: Laboratory Results - last 24 hr 09/21/22 23:00 WBC 6.3 RBC 4.23 Hgb 12.1 Hct 39.1 MCV 92.4 MCH 28.6 MCHC 30.9 L RDW Std Deviation 42.7 RDW Coeff of Adenike 12.6 Plt Count 298 MPV 8.8 Immature Gran % (Auto) 0.600 Neut % (Auto) 60.4 Lymph % (Auto) 29.7 [place] % (Auto) 6.9 Eos % (Auto) 1.6 Baso % (Auto) 0.8 Absolute Neuts (auto) 3.8 Absolute Lymphs (auto) 1.86 Nucleated RBC % 0 Differential Diagnosis Differential Diagnosis: Biliary colic, gallbladder disease, epigastric pain, gastritis, ulcer disease, nausea, vomiting, kidney stone Treatment and Re-Evaluation :: Patient's AST/ALT is 220/124. Alk phos is 133. Total bilirubin is normal. Patient had normal LFTs on September 06. Patient had elevation of LFTs on August 25. Patient had outpatient gallbladder ultrasound on August 30 that showed fatty liver and multiple small gallstones. All these results were discussed with Dr. Bowen, surgeon on-call Discharge Plan Triage Chief Complaint: Abd Pain ED Provider: Ayo Hines Dx/Rx/DC Orders Clinical Impression: Biliary colic, Nausea & vomiting, Gallstones, Elevated LFTs Instructions: ED Abdominal Pain Gallstone Poss, ED Gallstones with Biliary Colic, ED Vomiting (Adult) Prescriptions: New ondansetron [ondansetron] 4 mg tablet,disintegrating 4 mg PO Q4H PRN PRN (Reason: Nausea) Qty: 10 0RF dicyclomine 10 mg capsule 20 mg PO TIDAC Qty: 10 0RF hydrocodone-acetaminophen 5-325 mg tablet 1 tab PO Q4H PRN PRN (Reason: Pain) 3 Days Qty: 10 0RF No Action levothyroxine 100 mcg tablet 88 mcg PO DAILY Label Comments: TAKE 1 TABLET BY MOUTH ONCE DAILY escitalopram oxalate 20 mg tablet 20 mg PO DAILY azithromycin 250 mg tablet 250 mg PO QDAY Qty: 6 0RF Rx Instructions: 2 tablets today, then 1 tablet daily on days 2 through 5 dexamethasone 6 mg tablet 6 mg PO DAILY Qty: 5 0RF mutivitamin patch patch transdermal DAILY 1 mg Tablet PO Primary Care Provider: Tobias Cotto Referrals: Tobias Cotto MD [Primary Care Provider] - Brody Bowen MD [Med Staff - Active Staff] - Activity Restrictions/Additional Instructions: You need to call surgeon in follow-up and make a definitive appointment. Call Dr. Bowen's office tomorrow morning at 8:00 for follow-up in the next 1 to 2 days for also with weight gain, it is recommended to reach out to Dr. Tiwari as well from [place] to discuss your recent gastric sleeve procedure and your weight gain as well. Disposition Disposition: Home, Self Care
[2022-09-21 23:21] LABS: Internal QC Validated? YES +Cl - CLEAR BKGD; Pregnancy, Serum, hCG Quali. NEGATIVE Negative
[2022-09-21 23:24] LABS: BUN 13 mg/dL (7-18); Creatinine, Serum 0.77 mg/dL (0.55-1.02); Glucose 88 mg/dL (74-106)
[2022-09-21 23:25] LABS: ALB/GLOB Ratio 0.8 RATIO (0.9-2.4); AST(SGOT) 224 U/L (15-37); Alanine Aminotransfer ALT/SGPT 124 U/L (13-56); Albumin, Serum 3.3 g/dL (3.2-5.0); Alkaline Phosphatase 133 U/L (45-117); Anion Gap 7 (5-15); BUN/Creat Ratio 16.9 RATIO (10-20); Calcium,Total 8.6 mg/dL (8.5-10.1); Chloride 109 mmol/L (98-107); EST Glomerular Filtration Rate 99 mL/min (>60); Est Glom Filt Rate - Afr Amer 120 mL/min (>60); Estimated Creatinine Clearance 103.12 ml/min; Globulin 3.9 g/dL (2.2-4.2); Lipase 34 U/L (13-75); Potassium 4.5 mmol/L (3.5-5.1); Protein, Total 7.2 g/dL (6.4-8.2); Sodium Level 142 mmol/L (136-145)
[2022-09-21 23:36] LABS: Bacteria RARE /hpf (None Seen); Squamous Epithelial Cells - UA 0-5 SEEN /hpf (5-10)
[2022-09-21 23:45] LABS: Lactic Acid 1.4 mmol/L (0.4-1.9)
== END 2022-09-22 00:30 | disposition home or self-care (01) ==
PROVIDERS: Emergency Provider Emergency Medicine; PCP Family Medicine; Visit Provider Emergency Medicine
DX: K80.50 Calculus of bile duct without cholangitis or cholecystitis without obstruction (principal); K80.70 Calculus of gallbladder and bile duct without cholecystitis without obstruction; R79.89 Other specified abnormal findings of blood chemistry; R11.2 Nausea with vomiting, unspecified; E03.8 Other specified hypothyroidism; Z79.899 Other long term (current) drug therapy
CPT/HCPCS: 80053; 81001; 83605; 83690; 84703; 85025; 96361; 96372; 96374; 96375; 99283; J7030; A4216; J2405; J3490

== ENCOUNTER 2022-10-15 09:25 | Day surgery (SDC) | payer OTHER, SELFPAY ==
[2022-10-15] VITALS (11 sets, daily range): BP systolic 123–136; BP diastolic 65–93; PULSE 66–79; RESP 16–18; TEMP 36.2–36.6; O2SAT 91–99; BMI 45.2
--- NOTE | 2022-10-15 09:41 | EKG12_ITS ---
Test Reason : PREOP Blood Pressure : / mmHG Vent. Rate : 075 BPM Atrial Rate : 075 BPM P-R Int : 170 ms QRS Dur : 088 ms QT Int : 410 ms P-R-T Axes : 036 058 045 degrees QTc Int : 457 ms Normal sinus rhythm Normal ECG No previous ECGs available Confirmed by CHHAYA SCHRADER, PRAVIN ([id number]), acquisition editor CHON LUCIO ([id number]) on 10/20/2022 12:25:25 PM Referred By: Brody Bowen Confirmed By:PRAVIN SHAVER MD
[2022-10-15 09:46] LABS: Internal QC Validated? YES +Cl - CLEAR BKGD; Pregnancy, Urine Negative Negative
[2022-10-15] MEDS: Lactated Ringers 1,000 ML 15 ML IV ×2 (09:50→14:30)
--- NOTE | 2022-10-15 11:00 | GALL_PTH ---
PATIENT: SISSY LION LOC: [facility] U#:[id number] AGE/SX: 22/ ROOM: RE10/15/[address]: Dr. Brody Bowen MD : 2000 BED: DIS: 10/15/2022 SPEC #: [id number] RECD: 10/15/22 15:26 STATUS: JHOAN SILVIA #: [id number] PENG: 10/15/22 11:[address]: Brody Bowen DEPT: SURGICAL PATHOLOGY RECD BY: Jose Angel Chou ENTERED: 10/18/22 08:12 SP TYPE: TAIWO COREY DR: Dr. Jefferson Cotto MD Tissues: Gallbladder, NOS Procedures: Surgery Specimen Level III HEADER OPERATION: Laparoscopic cholecystectomy with IOC PRE-OP DIAGNOSIS: Biliary colic, gallstones TISSUE SUBMITTED: Gallbladder MICROSCOPIC DIAGNOSIS Gallbladder, cholecystectomy: Chronic cholecystitis and cholelithiasis. SJ:desmond 10/19/2022 MICROSCOPIC DESCRIPTION Slides are reviewed. GROSS DESCRIPTION Received is one container labeled with the patient's name and designated gallbladder. The specimen consists of a gallbladder measuring 10.0 cm in length and up to 3.5 cm in diameter. The external surface is pink-oneal, smooth and glistening for the most part. Focally it is granular, hemorrhagic and contains cautery artifact. The gallbladder contains green-yellow mucoid bile and multiple brown, round to mulberry to irregular stones measuring in aggregate 3.0 x 3.0 x 0.5 cm and 0.1 to 0.5 cm in greatest dimension. The mucosa is bile-stained and without any mass lesions. The gallbladder wall measures 0.1 cm in thickness. Oceanology Teacher sections from the gallbladder and the cystic duct are submitted in one cassette. / SJ:desmond 10/18/2022 TC:3 CPT: 18525
--- NOTE | 2022-10-15 11:10 | HP.PCM_ITS ---
History and Physical Date of Admission: 10/15/22 Date of Service:? 10/06/22 MR#: [id number] Acct: [id number] Name:SISSY LUIS Rep #: [id number] : 2000 ? ? Provider: Dr. Brody Bowen MD Age/Sex:? 21/F ? ? Location: [facility] Status: Signed Intake Vital Signs ? 09/21/2321:07 10/06/2308:12 Height 5 ft 5 in 5 ft 5 in Weight: 272 lb 8 oz 274 lb 6 oz BMI 45.3 45.6 BP 119/74 97/55 L Blood Pressure Location ? Rt brachial Position ? Sitting Respiration 15 17 Pulse 77 73 Pulse Source ? Monitor Temp 97.9 F 972 F H Temp Source Temporal Temporal Pulse Oximetry (%) 99 100 Oxygen Delivery Method ? room air Intake Visit Reasons:?GALLBLADDER Chief Complaint: gallbladder Is patient in pain?: Yes Allergies adhesive tape Adverse Reaction (Mild, Verified 10/06/22 09:19) Blisters Medications escitalopram oxalate 20 mg tablet 20 mg PO DAILY 07/11/20 [History Confirmed 10/06/22] levothyroxine 100 mcg tablet 88 mcg PO DAILY 07/11/20 [History Confirmed 10/06/22] mutivitamin patch transdermal DAILY 09/07/21 [History Confirmed 10/06/22] qbdltvon-qhn-Cs-FA 1 mg tablet tab PO 09/07/21 [History Confirmed 10/06/22] dexamethasone 6 mg tablet 6 mg PO DAILY #5 tabs 05/07/22 [Rx Confirmed 10/06/22] dicyclomine 10 mg capsule 20 mg PO TIDAC #10 CAPSULES 09/21/22 [Rx Confirmed 10/06/22] ondansetron 4 mg disintegrating tablet 4 mg PO Q4H PRN PRN Nausea #10 tabs 09/21/22 [Rx Confirmed 10/06/22] hydrocodone-acetaminophen 5-325mg 5mg-325mg 1 tab PO Q4H PRN PRN Pain 3 days #10 TABLETS 09/22/22 [Rx Confirmed 10/06/22] bupropion HCl 300 mg 24 hr tablet, extended release (Wellbutrin XL) 300 mg PO QAM 10/06/22 [History Confirmed 10/06/22] ferrous sulfate 325 mg (65 mg iron) tablet (Feosol) 325 mg PO DAILY 10/06/22 [History Confirmed 10/06/22] metformin 500 mg tablet 500 mg PO DAILY 10/06/22 [History Confirmed 10/06/22] PFSH Medical History?(Updated 10/06/22 @ 18:[address] Brody Bowen MD) Acute bronchitis, unspecified Acute pharyngitis, unspecified COVID-19 Insulin resistance PCOS (polycystic ovarian syndrome) Secondary oligomenorrhea Subclinical hypothyroidism Surgical History? H/O gastric sleeve H/O wisdom tooth extraction History of placement of ear tubes Family History? Grandmother Ovarian cancer Social History? current occupation:? [employer] Smoking Status:? Never smoker alcohol intake:? never substance use type:? does not use HPI HPI HPI: Patient is a 21-year-old female who presents for biliary colic symptoms.? They are referred for surgical consultation from emergency medicine.? She describes undergoing a gastric sleeve procedure in November 2020 where she lost 100 pounds.? She was then able to become with her son and delivered April 2022.? She notes that she had multiple attacks during this that have continued in the period.? She states that this manifests as epigastric pain with radiation to the back.? She estimates that at its peak she was experiencing these attacks 2-3 times per week, but more recently they have occurred once per week.? She notes that they tend to occur in the evenings.? She has not noted any particular food triggers, but admits to trying to avoid fatty foods.? Associated symptoms include feeling hot or having chills and experiencing nausea with severe pain. Patient reports that following her sleeve and she has gained some very significant weight.? She states that she only gained 25 pounds during her , but that her weight has since skyrocketed from 235pounds to 275 pounds.? 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 She has been told that her insulin resistance as part of her PCOS is primarily to blame.? She denies any significant changes to either her activity or her calorie intake.? She states that she has not followed up with her bariatric surgeon since surg kiersten, but denies any postoperative complications.? She states that she has considered a revisional procedure to address her growing weight.? She states that she simply feels better at the lower weight and that her body regulates more normally whereas she has not experienced any recent menstrual cycles at this higher weight. Previous work-up has included: Gallbladder ultrasound as well as multiple comprehensive metabolic panel's.? Gallbladder ultrasound demonstrated a normal distended gallbladder gallbladder wall measured 2 mm.? No sonographic Renner sign was detected.? No pericholecystic fluid was detected.? Multiple echogenic structures within the gallbladder were noted and felt to be consistent with multiple small gallstones.? Patient's CMP has variably demonstrated some mild transaminitis. ROS General General: Yes weight change; No appetite, fatigue, colon cancer, breast cancer or weakness HEENT HEENT: No difficulty swallowing, eye injury, eye surgery, swollen glands or hoarseness Endo Endocrine: Yes thyroid disease; No diabetes mellitus, thyroid cancer, Hair loss, heat intolerance or cold intolerance Skin Skin: No rash or changing moles Musc Musculoskeletal: No back problems, arthritis, rheumatoid arthritis, gout or joint pain Cardio Cardiovascular: No murmur, pacemaker, heart disease, atrial fibrillation, high blood pressure, heart attack, heart stent, palpitations, shortness of breat with exertion or chest pain Psych Psychiatric: Yes depression and anxiety; No hearing voices Resp Respiratory: No shortness of breath, No sleep apnea, No cough, No COPD, No asthma, No emphysema and No wheezing Gastro Gastrointestinal: No abdominal pain, No nausea or vomiting, No diarrhea, No constipation, No blood in stool, Yes acid reflux, No hemorrhoids, No ulcers, Yes gallbladder problem and No black,tarry stools Inder Hematologic: No blood thinners, No blood disorders, No bleeding, No anemia and No blood clots Neuro Neurologic: No system reviewed and no additional complaints, except as documented, No as per HPI, No abnormal gait, No abnormal hearing, No abnormal movements, No abnormal speech, No behavioral changes, No burning sensations, No confusion, No convulsions, No disequilibrium, No dizziness, No localized weakness, No frequent falls, No headache(s), No lack of coordination, No loss of vision, No memory loss, No numbness, No other visual disturbances, No radicular pain, No restless legs, No sensory deficit, No syncope, No tingling, No tremor(s), No weakness and No other Exam Const General: cooperative and comfortable Orientation: alert, awake and oriented x3 Resp Effort & Inspection: normal respiratory effort GI Other: Morbidly obese, hypertrophic scars consistent with prior laparoscopy, nondistended, soft, mildly tender to palpation in the right upper quadrant with negative Renner sign Assessment and Plan Assessment and Plan (1) Biliary colic: ?Status:?Chronic ?Comment: This is a 21-year-old female who presents for recurrent biliary colic/symptomatic cholelithiasis.? She reports frequent nighttime attacks of right upper quadrant pain that are postprandial in onset.? Several comprehensive metabolic panel have been drawn and shown evidence of probable biliary duct work entry by the stones with mild transaminitis.? On exam patient does have mild right upper quadrant tenderness in the area of her gallbladder.? Based on the above, I find it reasonable to recommend laparoscopic cholecystectomy with intraoperative cholangiogram.? This procedure was described and the description accompanied by hand drawings of the relevant anatomy.? Patient had the opportunity ask questions as they arose.? I also addressed patient's intermittent transaminitis and the possible need for a observational stay to facilitate completion of an ERCP procedure.? Patient expresses understanding of all the issues discussed. ?Plan: Laparoscopic cholecystectomy with intraoperative cholangiogram tentatively set for 10/15/2022.? Procedure to be scheduled as an outpatient procedure (2) Elevated LFTs: ?Status:?Inactive ?Comment: Patient with mild transaminitis.? Requires cholangiogram simultaneous with cholecystectomy (3) Gallstones: ?Status:?Inactive ?Comment: As per right upper quadrant ultrasound from 08/30/2022 (4) Morbid (severe) obesity due to excess calories: ?Status:?Chronic ?Comment: Patient with morbid obesity despite history of gastric sleeve procedure November 2020.? Recommended to patient that she reach out to her prior bariatric surgery or establish new following given her recent weight gains.? She is exploring alternative with possible initiation of weight loss medication through her PCP.? I have confirmed with gastroenterology that they are able to do ERCP even with post sleeve gastrectomy anatomy in the event that patient is found to have choledocholithiasis with cholangiogram. I have examined the patient and the H&P has been reviewed. There are no clinical changes since date of exam. Patient denies any further attacks of right upper quadrant discomfort. She denies any interval health updates since our clinic visit. She denies any further questions related to today's procedure. I did reiterate to her that she may require a observational stay if her cholangiogram is found to show any filling defects. She expresses understanding as does her . Therefore we will proceed to the operating room for planned laparoscopic cholecystectomy with intraoperative cholangiogram.
--- NOTE | 2022-10-15 11:15 | RAD_ITS ---
STUDY: INTRAOPERATIVE CHOLANGIOGRAM. REASON FOR EXAM: Female, 22 years old. Laparoscopic cholecystectomy. FLUOROSCOPY TIME (if supplied): ( 49.8 seconds ) minutes/seconds. 93.21 mGy TECHNIQUE: An intraoperative Cholangiogram was performed by the surgeon. Imaging was submitted. COMPARISON: None. FINDINGS: The visualized intrahepatic and extrahepatic biliary ducts are unremarkable. Free flow of contrast is seen into the duodenum. No filling defects are seen in the common bile duct. RAD/Cholangiogram/ O R,Initial IMPRESSION: Unremarkable intraoperative cholangiogram. Electronically Signed: Johnny Morris MD at 9:52 EDT ,
[2022-10-15] MEDS: Triamcinolone Acetonide 40 MG/ML Vial (12:43)
[2022-10-15] MEDS: Bupivacaine Mpf 0.5% 30 ML VIAL (12:45)
--- NOTE | 2022-10-15 12:46 | PCM.OPRPT ---
Report of Operation Date of Procedure: 10/15/22 Pre-Operative Diagnosis: Symptomatic cholelithiasis Post-Operative Diagnosis: Mild chronic cholecystitis with cholelithiasis Surgery/Procedure Performed:: Laparoscopic cholecystectomy with intraoperative cholangiogram Description of Surgical Findings:: Normal biliary anatomy with thin cystic duct and densely adherent node of Calot to cystic artery Normal cholangiogram showing antegrade filling of the common bile duct through the ampulla of Vater into the duodenum and retrograde reflux of the common hepatic system Surgeon: Brody Bowen mandate retail service merchandiser: Kerri Suarez Type of Anesthesia: General/Supplemental Anesthesiologist: Curtis Barrera Special Medications: Kenalog (40 mg) administered to the dermis via injection for history of keloids Specimen's removed: Gallbladder Drains: None Estimated Blood Loss (mL): 20 Description of Procedure: After proper identification in the preoperative holding area the patient was brought to the operating room where she was positioned supine on the operating room table. Preoperatively SCDs and antibiotics were administered. General anesthesia was then induced. Patient's abdomen was prepped and draped in usual sterile fashion. A formal timeout was conducted to confirm both patient and the procedure. Procedure was begun with a supraumbilical incision which was extended deeply down to the level of the fascia. The fascia was elevated and incised, as well as the peritoneum. A finger sweep was performed to ensure there were no underlying adhesions and a 12 mm balloon trocar was inserted. Pneumoperitoneum was established at 15 mmHg. 3 additional trocars were placed in the epigastrium and in the right upper quadrant (3 x 5 mm). Inspection of the peritoneum revealed no inadvertent injury to the viscera below. The gallbladder was visualized with mild inflammation and adhesions to the nearby omentum. The gallbladder fundus was then grasped and elevated cephalad. Then, using careful dissection the peritoneum was opened and the structures of the hepatocystic triangle were delineated. Once the critical view of safety was obtained, the cystic duct was singly clipped and partially divided with a ductotomy. The proximal duct was milked of any debris and a cholangiocatheter was fed through the abdominal wall via a 14 [place] angiocatheter and into the proximal segment of the cystic duct. After clipping a cholangiocatheter in place, fluoroscopy was used to obtain a cholangiogram showing a average length but thin cystic duct flowing into a common bile duct with unobstructed antegrade flow of contrast into the duodenum. There was also retrograde flow through the common hepatic duct into the right and left hepatic ducts. Satisfied with this result, the cholangiocatheter was withdrawn and the proximal cystic duct was sealed with clips and the cystic duct was completely transected. The same process was used for the cystic artery. The gallbladder was then removed from the gallbladder fossa with the use of electrocautery. Selective electrocautery was used to obtain hemostasis in the gallbladder fossa. The gallbladder was placed in an Endo Catch bag and removed from the peritoneum. Morison's pouch was irrigated and the effluent was suctioned free of the peritoneum. Hemostasis was again confirmed. The supraumbilical 12 mm port site was closed under laparoscopic visualization using a Francisco-Etelvina suture passer and #1 PDS suture in a [id number] fashion. Pneumoperitoneum was evacuated and the fascial closure of the 12 mm port site was tied and the fascia injected directly for postoperative analgesia. A total of 30 mL of half percent Marcaine local anesthetic was injected at the port sites for postoperative pain control. The skin of each port site was then closed in subcuticular fashion using 4-0 Monocryl. Steri-Strips were avoided given patient's intolerance of adhesive?specifically Steri-Strips. Bandages were applied as dressings. Patient tolerated the procedure well without any apparent complications. On emergence from their anesthetic the patient was taken to PACU for ongoing recovery. Grafts/Implants Used: None Complications None Admit VTE Documentation VTE Mechan Device Prophylaxis: SCD's Procedures Digestive 40xxx-49xxx: [id number] Laparo cholecystectomy/graph
--- NOTE | 2022-10-15 12:56 | DCINST_ITS ---
Discharge Instructions Diet Discharge Diet: No restrictions Activity Discharge Activity: May Not Drive (No driving while using narcotic pain medication) and May Shower (Postoperative day 1) May shower in (days): 2 Ice area for (Minutes): 20 Lifting Restrictions: No lifting greater than 15 pounds for 2 weeks after surgery Dressing / Incision Call your doctor if your incision/area has: Continuous Slow Oozing, Increased Pain/ Swelling, Increased Redness, Foul Smelling Discharge and Swelling at the incision site Call your doctor if you observe: Fever of 101 or Higher Remove Dressing in: 1 day (Please leave Steri-Strips intact until they fall off spontaneously or are taken off at your follow-up visit) Cleanse incision/area with: Soap & Water Follow Up Care Please Follow Up With: Brody Bowen MD When: 2 weeks postop Test Results: Test results from this visit will be discussed in further detail at your follow- up appointment, if applicable. Discharge Plan Admission Primary Reason for Your Visit: Gallbladder surgery Attending Provider: Brody Bowen Primary Care Provider: Tobias Cotto Discharge Orders/Prescriptions Prescriptions: Continued levothyroxine 100 mcg tablet 88 mcg PO DAILY Label Comments: TAKE 1 TABLET BY MOUTH ONCE DAILY escitalopram oxalate 20 mg tablet 20 mg PO DAILY bupropion HCl [Wellbutrin XL] 300 mg tablet extended release 24 hr 300 mg PO QAM metformin 500 mg tablet 500 mg PO DAILY ferrous sulfate [Feosol] 325 mg (65 mg iron) tablet 325 mg PO DAILY mutivitamin patch patch 1 patch transdermal DAILY ondansetron 4 mg tablet,disintegrating 4 mg PO Q4H PRN PRN (Reason: Nausea) Qty: 10 0RF hydrocodone-acetaminophen 5-325 mg tablet 1 tab PO Q4H PRN PRN (Reason: Pain) 3 Days Qty: 10 0RF docusate sodium [Colace] 100 mg Capsule 200 mg PO DAILY diphenhydramine-acetaminophen [Tylenol PM Extra Strength] 25-500 mg Tablet 2 tab PO QHS PRN (Reason: Sleep) dicyclomine 10 mg capsule 20 mg PO TIDAC PRN (Reason: GERD) Referrals / Follow Up: Tobias Cotto MD [Primary Care Provider] - Disposition Disposition (needs filled in before D/C Order can be placed): Home, Self Care
[2022-10-15] MEDS: HYDROcodone Bitartrate/Apap 5/325 Tablet PO (15:22)
== END 2022-10-15 17:09 | disposition home or self-care (01) ==
LOC: SDC 09:27 → AC 09:28
PROVIDERS: Anesthesiology; PCP Family Medicine; Referring Provider Surgery; Visit Provider Surgery
PROC: (CPT 47610; principal; 2022-10-15 10:40)
DX: K80.50 Calculus of bile duct without cholangitis or cholecystitis without obstruction (principal); E66.01 Morbid (severe) obesity due to excess calories; Z68.42 Body mass index [BMI] 45.0-49.9, adult; R79.89 Other specified abnormal findings of blood chemistry; R74.01 Elevation of levels of liver transaminase levels; Z86.16 Personal history of COVID-19; E88.81 Metabolic syndrome and other insulin resistance; E28.2 Polycystic ovarian syndrome; E03.9 Hypothyroidism, unspecified; Z90.3 Acquired absence of stomach [part of]
CPT/HCPCS: 47563; 00790; 74300; 76000; 81025; 88304; 93005; J7120; J2405

== ENCOUNTER → 2023-07-01 | Outpatient (CLI) | payer OTHER, SELFPAY ==
--- OUTSIDE RECORDS SUMMARY | 2023-07-01 10:00 | XMS RPT_ITS | CCD ---
Author Name Unknown Address [phone] [place] [address] Organization [facility] Care Team Providers Care Equipment Associate Name Role Phone None, No PCP Unavailable Unavailable Unavailable Primary Care Provider UnavailBetsy Chris Unavailable Grace Lewis Unavailable Unavailable Betsy Cotto Unavailable [phone] Unavailable Unavailable MARCO ANTONIO SCHRADER, DR MEYER Primary Care Physician MOLINA HUNTER Referring Unavailable BETSY COTTO Primary Care UnavailEVONNE Price Attending Unavailable LINDA NAVARRETE Attending Unavailable MOLINA HUNTER Referring Unavailable BETSY COTTO Primary Care Unavailabl e MOLINA HUNTER E Referring Unavailable BETSY COTTO Primary Care UnavailLINDA Mckinney Attending Unavailable ELSA SCHRADER, MOLINA Attending Unavailable MARCO ANTONIO SCHRADER, DR MEYER Primary Care Francisca COTTO MD, DR MEYER Primary Care Francisca HUNTER MD, MOLINA Attending Unavailable ELSA SCHRADER, MOLINA Attending Unavailable MARCO ANTONIO SCHRADER, DR MEYER Primary Care Francisca HUNTER MD, MOLINA Attending Unavailable MARCO ANTONIO SCHRADER, DR MEYER Primary Care Francisca COTTO MD, DR MEYER Primary Care Francisca HUNTER MD, MOLINA Attending Unavailable MARCO ANTONIO SCHRADER, DR MEYER Primary Care Francisca ORTIZ DIABETIC EDUCATOR-BLOCKER POLISHING, VIRGEN Attending Unavail able MARCO ANTONIO SCHRADER, DR MEYER Primary Care Francisca QUINTERO APRN-CNM, IVORY Attending Unavaila ble ELSA MD, MOLINA Admitting Unavailable ELSA SCHRADER, MOLINA Attending Unavailable MARCO ANTONIO SCHRADER, DR MEYER Primary Care Francisca COTTO MD, DR MEYER Primary Care Francisca HUNTER MD, MOLINA Admitting Unavailable ELSA SCHRADER, MOLINA Attending Unavailable MARCO ANTONIO SCHRADER, DR MEYER Primary Care Francisca HUNTER MD, MOLINA Attending Unavailable ELSA SCHRADER, MOLINA Attending Unavailable MARCO ANTONIO SCHRADER, DR MEYER Primary Care Francisca marcus Allergies Allergy Classification Reported Allergen(s) Allergy Type Date of Onset Reaction(s) Facility Unclassified (1 source) Tape - Adhesive, Bandaids, Paper Unknown [facility] (8 sources) Adhesive Tape Allergy to substance [facility] NEGATED: Highlighted row has been ruled out! (1 source) Drug allergy [facility] NEGATED: Highlighted row has been ruled out! (1 source) Drug allergy [facility] NEGATED: Highlighted row has been ruled out! (1 source) Drug allergy [facility] NEGATED: Highlighted row has been ruled out! (1 source) Drug allergy [facility] NEGATED: Highlighted row has been ruled out! (1 source) Drug allergy [facility] NEGATED: Highlighted row has been ruled out! (1 source) Drug allergy [facility] NEGATED: Highlighted row has been ruled out! (1 source) Drug allergy [facility] NEGATED: Highlighted row has been ruled out! (1 source) Drug allergy [facility] Medications Current Medications Medication Drug Class(es) Dates Sig (Normalized) Sig (Original) acetaminophen 500 mg / diphenhydrAMINE hydrochloride 25 mg oral tablet (7 sources) Histamine-1 Receptor Antagonist Start: 12-18-2021 take 1 tablet by mouth once daily at bedtime Tylenol PM Extra Strength oral tablet Dose = 1 tab(s), Oral, qHS, 0 Refill(s) Start Date: 12/18/21 Status: Ordered amoxicillin 500 mg oral capsule (1 source) Penicillin-class Antibacterial Start: 10-11-2022 take 1 capsule by mouth twice daily amoxicillin 500 mg oral capsule TAKE 1 CAPSULE BY MOUTH TWICE DAILY Start Date: 02/16/22 Status: Ordered 24 hr buPROPion hydrochloride 150 mg extended release oral tablet (14 sources) Aminoketone Start: 11-18-2021 take 1 tablet by mouth once daily buPROPion 150 mg/24 hours (XL) oral tablet, extended release take 1 tablet by mouth daily Start Date: 11/18/21 Status: Ordered Completed/Discontinued Medications Medication Drug Class(es) Dates Sig (Normalized) Sig (Original) azithromycin 500 mg oral tablet (1 source) Macrolide Antimicrobial Start: 12-11-2020 take 2 tablets by mouth once Azithromycin 500 MG Oral Tablet TAKE 2 TABLETS BY MOUTH ONCE Quantity: 2 Refills: 0 Ordered: 11-Dec-2020 DO Start : 11-Dec-2020 Complete calcium citrate 1190 mg / cholecalciferol 0.005 mg oral tablet (4 sources) Vitamin D Start: 11-11-2020 End: 02-17-2021 take 1 tablet by mouth three times daily Calcium Citrate + D3 250-200 MG-UNIT Oral Tablet TAKE 1 TABLET 3 times daily Quantity: 90 Refills: 3 Ordered: 11-Nov-2020 Grace Lewis MD Start : 11-Nov-2020 End : 17-Feb-2021 Complete cholecalciferol 0.125 mg oral capsule (6 sources) Vitamin D Start: 12-24-2019 RA Vitamin D-3 125 MCG (5000 UT) Oral Capsule Quantity: 30 Refills: 0 Ordered: 11-Jun-2020 DO Start : 24-Dec-2019 Active Flintstones Complete 18 MG Oral Tablet Chewable (4 sources) Start: 11-11-2020 End: 02-17-2021 take 1 tablet by mouth once daily Flintstones Complete 18 MG Oral Tablet Chewable CHEW AND SWALLOW 1 TABLET DAILY. Quantity: 30 Refills: 3 Ordered: 11-Nov-2020 Grace Lewis MD Start : 11-Nov-2020 End : 17-Feb-2021 Complete Problems Active Problems Problem Classification Problem Date Documented Da te Episodic/Chronic Abdominal pain (8 sources) Epigastric pain 11-18-2021 Episodic Administrative/social admission (18 sources) Patient encounter status; Translations: [Dietary surveillance and counseling] Episodic Conditions associated with dizziness or vertigo (3 sources) Dizziness 03-23-2022 Episodic Deficiency and other anemia (3 sources) Anemia 03-23-2022 Episodic Malaise and fatigue (1 source) Fatigue; Translations: [Other fatigue] Episodic Mood disorders (6 sources) Depressive disorder; Translations: [Depressive disorder, not elsewhere classified] Chronic Mood disorders (2 sources) Mood disorders; Translations: [Depression, unspecified] Onset: 07-20-2022 Nausea and vomiting (5 sources) Postoperative nausea and vomiting; Translations: [Nausea with vomiting] Episodic Other circulatory disease (1 source) Low blood pressure; Translations: [Hypotension, unspecified] Episodic Other connective tissue disease (8 sources) Spasm 11-18-2021 Episodic Other gastrointestinal disorders (15 sources) History of bariatric surgical procedure; Translations: [Bariatric surgery status] Onset: 07-20-2022 11-18-2021 Episodic Other gastrointestinal disorders (5 sources) History of sleeve gastrectomy; Translations: [Bariatric surgery status] Episodic Other gastrointestinal disorders (8 sources) Constipation 11-18-2021 Episodic Other gastrointestinal disorders (2 sources) Bariatric surgery status; Translations: [Bariatric surgery status] Onset: 07-20-2022 Episodic Other lower respiratory disease (6 sources) Snoring; Translations: [Other respiratory abnormalities] Episodic Other nervous system disorders (5 sources) Acute postoperative pain; Translations: [Other acute postoperative pain] Episodic Other nutritional; endocrine; and metabolic disorders (12 sources) Psychosomatic factor in physical condition; Translations: [Psychic factors associated with diseases classified elsewhere] Chronic Other nutritional; endocrine; and metabolic disorders (6 sources) Body mass index 40+ - severely obese; Translations: [Morbid obesity] Chronic Other nutritional; endocrine; and metabolic disorders (6 sources) Morbid obesity; Translations: [Morbid obesity] Chronic Other nutritional; endocrine; and metabolic disorders (1 source) Obese class II; Translations: [Body mass index (BMI) 36.0-36.9, adult] Chronic Other nutritional; endocrine; and metabolic disorders (2 sources) Body mass index (BMI) 40.0-44.9, adult; Translations: [Body mass index [BMI] 40.0-44.9, adult] Onset: 07-20-2022 Chronic Other nutritional; endocrine; and metabolic disorders (2 sources) Weight loss; Translations: [Loss of weight] Episodic Other and delivery including normal (11 sources) ; Translations: [Normal ] Onset: 08-01-2021 10-21-2021 Episodic Residual codes; unclassified (6 sources) Sleep apnea; Translations: [Unspecified sleep apnea] Chronic Thyroid disorders (3 sources) Hypothyroidism 03-23-2022 Chronic Unclassified (2 sources) ROBOTIC ASSISTED SLEEVE GASTRECTOMY 09-25-2020 Past or Other Problems Problem Classification Problem Date Documented Da te Episodic/Chronic Residual codes; unclassified (2 sources) 35 weeks gestation of ; Translations: [35 weeks gestation of ] Onset: 04-06-2022 Episodic Results Test Name Value Interpretation Reference Range Facil ity Vital Signs Date Time Vital Sign Value Performing Clinician Faci lity 04-11-2022 08:20-0500 Body temperature 97.16 [degF] MOLINA HUNTER MD [facility] 04-11-2022 08:20-0500 Diastolic Blood Pressure Non-Invasive 56 1 MOLINA HUNTER MD [facility] 04-11-2022 08:20-0500 Heart rate 78 /min MOLINA HUNTER MD [facility] 04-11-2022 08:20-0500 Respiratory rate 18 /min MOLINA HUNTER MD [facility] 04-11-2022 08:20-0500 Systolic Blood Pressure Non-Invasive 106 1 MOLINA HUNTER MD [facility] 04-11-2022 04:30-0500 Body temperature 96.26 [degF] MOLINA HUNTER MD [facility] 04-11-2022 04:30-0500 Diastolic Blood Pressure Non-Invasive 60 1 MOLINA HUNTER MD [facility] 04-11-2022 04:30-0500 Heart rate 82 /min MOLINA HUNTER MD [facility] 04-11-2022 04:30-0500 Respiratory rate 18 /min MOLINA HUNTER MD [facility] 04-11-2022 04:30-0500 Systolic Blood Pressure Non-Invasive 111 1 MOLINA HUNTER MD [facility] 04-11-2022 04:21-0500 Body height 165.1 cm MOLINA HUNTER MD [facility] 04-11-2022 04:21-0500 Body weight 105.4 kg MOLINA HUNTER MD [facility] 04-11-2022 04:21-0500 Body weight 38.67 kg/m2 MOLINA HUNTER MD [facility] 03-14-2022 16:00-0500 Body temperature 97.7 [degF] MOLINA HUNTER MD [facility] 03-14-2022 16:00-0500 Diastolic blood pressure 43 mm[Hg] MOLINA HUNTER MD [facility] 03-14-2022 16:00-0500 Heart rate 67 /min MOLINA HUNTER MD [facility] 03-14-2022 16:00-0500 Mean blood pressure 59 mm[Hg] MOLINA HUNTER MD [facility] 03-14-2022 16:00-0500 Systolic blood pressure 90 mm[Hg] MOLINA HUNTER MD [facility] 03-14-2022 14:00-0500 Diastolic blood pressure 49 mm[Hg] MOLINA HUNTER MD [facility] 03-14-2022 14:00-0500 Heart rate 73 /min MOLINA HUNTER MD [facility] 03-14-2022 14:00-0500 Mean blood pressure 65 mm[Hg] MOLINA HUNTER MD [facility] 03-14-2022 14:00-0500 Systolic blood pressure 96 mm[Hg] MOLINA HUNTER MD [facility] 03-14-2022 13:01-0500 Diastolic blood pressure 46 mm[Hg] MOLINA HUNTER MD [facility] 03-14-2022 13:01-0500 Heart rate 70 /min MOLINA HUNTER MD [facility] 03-14-2022 13:01-0500 Mean blood pressure 64 mm[Hg] MOLINA HUNTER MD [facility] 03-14-2022 13:01-0500 Respiratory rate 16 /min MOLINA HUNTER MD [facility] 03-14-2022 13:01-0500 Systolic blood pressure 99 mm[Hg] MOLINA HUNTER MD [facility] 03-14-2022 12:00-0500 Body temperature 98.24 [degF] MOLINA HUNTER MD [facility] 03-14-2022 09:30-0500 Body temperature 97.52 [degF] MOLINA HUNTER MD [facility] 03-14-2022 08:44-0500 Body height 165.1 cm MOLINA HUNTER MD [facility] 03-14-2022 08:44-0500 Body weight 104.09 kg MOLINA HUNTER MD [facility] 03-14-2022 08:44-0500 Body weight 38.19 kg/m2 MOLINA HUNTER MD [facility] 02-17-2021 13:36-0400 Body weight 108.86 kg Betsy Cotto Work Phone: QJ-Iaamoph-Eqron [id number] Work Phone: 12-30-2020 14:41-0400 Body weight 115.21 kg Betsy Cotto Work Phone: BJ-Vjaxkwe-Ynlmn [id number] Work Phone: 11-19-2020 09:55-0400 Body temperature 96.8 [degF] Betsy Cotto Other Phone: [facility] 11-19-2020 09:55-0400 Diastolic blood pressure 73 mm[Hg] Betsy Cotto Other Phone: [facility] 11-19-2020 09:55-0400 Heart rate 65 /min Betsy Cotto Other Phone: [facility] 11-19-2020 09:55-0400 SaO2% (BldA) [Mass fraction] 94 % Betsy Cotto Other Phone: [facility] 11-19-2020 09:55-0400 Systolic blood pressure 114 mm[Hg] Betsy Cotto Other Phone: [facility] 11-19-2020 05:50-0400 Body weight 128.9 kg Betsy Cotto Other Phone: [facility] 11-19-2020 05:31-0400 Respiratory rate 18 /min Betsy Cotto Other Phone: [facility] 11-11-2020 11:44-0400 Body height 165.1 cm Betsy Cotto Work Phone: YU-Tmgbjrt-Wqxyz [id number] Work Phone: 11-11-2020 11:44-0400 Body mass index (BMI) [Ratio] 46.26 kg/m2 Betsy Cotto Work Phone: WA-Qmlfnmi-Ummii [id number] Work Phone: 11-11-2020 11:44-0400 Body surface area Derived from formula 2.28 m2 Betsy Cotto Work Phone: AY-Htookjs-Jhaup [id number] Work Phone: 11-11-2020 11:44-0400 Body temperature 97.6 [degF] Betsy Cotto Work Phone: XU-Urcjjeo-Kjfai [id number] Work Phone: 11-11-2020 11:44-0400 Body weight 126.1 kg Betsy Cotto Work Phone: QB-Qplwcpi-Ncyks [id number] Work Phone: 11-11-2020 11:44-0400 Diastolic blood pressure 67 mm[Hg] Betsy Cotto Work Phone: SL-Ttayfys-Tlfjw [address] Work Phone: 11-11-2020 11:44-0400 Heart rate 83 /min Betsy Cotto Work Phone: RY-Atzaxfv-Immkt [id number] Work Phone: 11-11-2020 11:44-0400 Respiratory rate 18 /min Betsy Cotto Work Phone: RQ-Kwmwyai-Sndle [id number] Work Phone: 11-11-2020 11:44-0400 Systolic blood pressure 97 mm[Hg] Betsy Cotto Work Phone: BY-Bockdsc-Kwnng [id number] Work Phone: 11-11-2020 11:44-0400 0 1 Betsy Cotto Work Phone: YM-Tnadvcn-Lkcig [id number] Work Phone: Encounters Encounter Date Encounter Type Care Provider Facility Start: 07-20-2022 End: 07-25-2022 ambulatory MOLINA HUNTER MD Facility:B Start: 04-13-2022 End: 04-14-2022 Evaluation and management of inpatient MOLINA HUNTER MD Facility:B Start: 04-11-2022 End: 04-11-[address] BETSY COTTO MD Facility:B Start: 04-11-2022 End: 04-11-2022 SAME DAY STAY MOLINA HUNTER MD [facility] Start: 04-09-2022 End: 04-09-2022 ambulatory MOLINA HUNTER [facility] Start: 04-06-2022 End: 04-11-[address] BETSY COTTO MD Facility:B Start: 04-06-2022 End: 04-10-2022 Outreach Lab MOLINA HUNTER MD [facility] Start: 04-02-2022 End: 04-02-2022 [facility] Start: 03-31-2022 End: 04-01-2022 ambulatory MOLINA HUNTER MD Facility:B Start: 03-31-2022 End: 03-31-2022 Patient encounter procedure MOLINA HUNTER MD [facility] Start: 03-16-2022 End: 03-17-2022 ambulatory MOLINA HUNTER MD Facility:B Start: 03-16-2022 End: 03-16-2022 Patient encounter procedure MOLINA HUNTER MD [facility] Start: 03-14-2022 End: 03-14-[address] BETSY COTTO MD Facility:B Start: 03-14-2022 End: 03-14-2022 Observation MOLINA HUNTER MD [facility] Start: 03-02-2022 End: 03-02-2022 ambulatory MOLINA HUNTER [facility] Start: 02-23-2022 End: 02-24-[address] BETSY COTTO MD Facility:B Start: 02-16-2022 End: 02-17-[address] BETSY COTTO MD Facility:B Start: 02-16-2022 End: 02-16-2022 Patient encounter procedure VIRGEN ORTIZ DIABETIC EDUCATOR-BLOCKER POLISHING [facility] Start: 12-18-2021 End: 12-19-[address] BETSY COTTO MD Facility:B Start: 12-18-2021 End: 12-18-2021 Patient encounter procedure IVORY QUINTERO DIABETIC EDUCATOR-CNM [facility] Start: 11-18-2021 End: 11-19-2021 ambulatory MOLINA HUNTER MD Facility:B Start: 11-18-2021 End: 11-18-2021 Patient encounter procedure MOLINA HUNTER MD [facility] Start: 02-17-2021 Patient encounter procedure Betsy Cotto Work Phone: UN-Mewrbgj-Cynyumcm [id number] [facility] Work Phone: Start: 02-17-2021 Postop follow up vis it related to original px Betsy Cotto Work Phone: OP-Ypkicix-Lwrkg [id number] Work Phone: Start: 12-30-2020 Postop follow up vis it related to original px Betsy Cotto Work Phone: TM-Tfmyfml-Termo [address] Work Phone: Start: 12-04-2020 Rx Renewal Betsy Cotto Work Phone: KC-Bauljwg-Jtyht [address] Work Phone: Start: 11-25-2020 Postop follow up vis it related to original px Betsy Cotto Work Phone: DE-Rxnykfs-Sjpwh [address] Work Phone: Start: 11-17-2020 End: 11-19-2020 Evaluation and management of inpatient Grace Lewis [facility] [id number] Rm [id number] Start: 10-28-2020 End: 10-28-2020 Subsequent hospital visit by physician Will Matos MD Work Phone: [facility] Procedures Date Procedure Procedure Detail Performing Clinician Start: 11-06-2020 Laps gstrc rstrictiv px longitudinal gastrectomy MOLINA HUNTER MD Start: 10-29-2020 Antibody screen Plan of Treatment Date Care Activity Detail Author Start: 09-25-2029 DTaP/Tdap/Td vaccine (8 - Td or Tdap) DTaP/Tdap/Td vaccine (8 - Td or Tdap) [facility] Work Phone: Start: 05-19-2021 VIRCARLO, Provider : Anisha Rosenberg, Status: Pen, Time: 3:00 PM SABINO, Provider: Anisha Rosenberg, Status: Pen, Time: 3:00 PM TK-Umjkwwh-Qhzmp [address] Work Phone: Start: 02-17-2021 SABINO, Provider : Anisha Rosenberg, Status: Pen, Time: 3:00 PM SABINO, Provider: Anisha Rosenberg, Status: Pen, Time: 3:00 PM ZA-Kqagecg-Idhct [address] Work Phone: Start: 02-17-2021 Patient encounter procedure [facility] Start: 02-17-2021 SABINO, Provider : Grace Lewis, Status: Pen, Time: 1:30 PM VIRFUVHOME, Provider: Grace Lewis, Status: Pen, Time: 1:30 PM FC-Fgvcmyb-Ybhql [address] Work Phone: Start: 01-07-2021 Influenza vaccination Flu vacc ine (Season Ended) [facility] Work Phone: Start: 12-23-2020 Patient encounter procedure [facility] Start: 12-23-2020 VIRFUVHOME, Provider : Anisha Rosenberg, Status: Pen, Time: 3:00 PM VIRFUVHOME, Provider: Anisha Rosenberg, Status: Pen, Time: 3:00 PM XT-Ckiyhzk-Vqsyf [address] Work Phone: Start: 12-16-2020 Patient encounter procedure [facility] Start: 12-16-2020 VIRFUVLUCAS, Provider : Grace Lewis, Status: Pen, Time: 1:45 PM VIRFUVHOME, Provider: Grace Lewis, Status: Pen, Time: 1:45 PM FW-Eaovjnj-Gibmt [address] Work Phone: Start: 11-25-2020 VIRFUVHOME, Provider : Anisha Rosenberg, Status: Pen, Time: 3:00 PM VIRFUVHOME, Provider: Anisha Rosenberg, Status: Pen, Time: 3:00 PM OT-Vnweijj-Sczrm [address] Work Phone: Start: 11-25-2020 Patient encounter procedure [facility] Start: 11-25-2020 VIRFUVHOME, Provider : Grace Lewis, Status: Pen, Time: 1:30 PM VIRFUVHOME, Provider: Grace Lewis, Status: Pen, Time: 1:30 PM KJ-Jpfhjvr-Cklla [address] Work Phone: Start: 11-17-2020 End: 11-18-2021 [facility] Immunizations Immunization Date Immunization Notes Care Provider Fa cilistephanie 03-09-2022 tetanus toxoid, redu bradly diphtheria toxoid, and acellular pertussis vaccine, adsorbed; Translations: [Boostrix (Tdap)] MOLINA HUNTER MD [facility] Payers Date Payer Category Payer Unknown [id number] 2020 Unknown 2020 Unknown [id number] 1999 Unknown [id number] 2.16. [id number] 1999 Unknown [id number] 2.16. [id number] 1999 Unknown [id number] 2.16. [id number] 1999 Unknown [id number] 2.16.8 [id number] 1999 Unknown [id number] 2.16.8 [id number] 1999 Unknown [id number] 2.16.8 [id number] 1999 Unknown [id number] 2.16.8 [id number] 1999 Unknown [id number] 2.16.8 [id number] 1999 Unknown [id number] 2.16.8 [id number] 1999 Unknown [id number] 2.16.8 [id number] 1999 Unknown [id number] 2.16.8 [id number] 1999 Unknown [id number] 2.16.8 [id number] 1999 Unknown [id number] 2.16.8 [id number] 1999 Unknown [id number] 2.16.8 [id number] Social History Date Type Detail Facility Start: 09-08-2020 End: 10-21-2021 Tobacco smoking status NHIS Never smoker [facility] Start: 09-08-2020 Tobacco use and exposure Never used [facility] Start: 09-08-2020 Alcohol intake Current drinke r of alcohol (finding) [facility] Work Phone: Start: 09-08-2020 Alcohol Comment occassionally [facility] Work Phone: Start: 1999 Sex Assigned At Not on file S [facility] Work Phone: Tobacco smoking consumption unknown [facility] No alcohol use No alcohol use [facility] [address] Work Phone: Sex Assigned At Female [facility] Functional Status Date Assessment Result Facility 04-11-2022 Functional Status Ambulation in Room [facility] 04-11-2022 Functional Status [facility] 04-11-2022 Functional Status Home with family care A [facility] 03-14-2022 Functional Status Repositions self [facility] Functional observable [facility] Mental Status Date Assessment Result Facility 04-11-2022 Mental Status Orientation Oriented x 4 [facility] 03-14-2022 Mental Status Oriented x 4 [facility] 11-19-2020 Cognitive functi ons :02 [facility] Clinical Notes 11-17-2020 to 04-11-2022 LaboratoryLaboratoryLaboratoryLaboratoryLaboratoryLaboratory<item><item><item> Note Date & Type Note Facility 04-11-2022 Hospital Discharge instructions Patient Education 04/11/2022 09:05:24 [facility] ([facility]) [employer] [facility] HOME-GOING INSTRUCTIONS _X_ You are to follow up with your physician in ___ days/weeks. ACTIVITY ___ Bedrest ___Activity as tolerated ___ No work/school for ___ days. ___Other PRESCRIPTION GIVEN ___Yes NAUSEA/VOMITING ___ Take small, frequent amounts of clear liquids. Avoid fruit juices and milk. ___ Increase fluid intake to a minimum of 8 ounces of fluid every hour while awake. ___ Soft diet. Rice, crackers, bananas, Jell-O, cooked carrots, applesauce. ___ Coles diet. Avoid caffeine, chocolate, alcohol, spiced/greasy foods. URINARY TRACT INFECTION ___ Drink 8-12 glasses of water every day. ___ Urinate frequently; do not limit fluids to reduce frequency of urination. ___ Call your physician if burning and frequency with urination returns after taking all your medication. ___ Call your physician if you have a temperature of 100.4 degrees Fahrenheit or higher. ___ Wipe from front to back. SIGNS OF PRE-ECLAMPSIA ___ Severe heartburn. ___ Persistent headache not relieved by Tylenol. ___ Increased in swelling of face, hands and feet. ___ Blurred vision, double vision, or spots in the eyes. ___ Persistent vomiting. ___ *Convulsions or seizures. LABOR ___ Restrict activity. _X__ Drink 8-12 glasses of water every day. __X_ Urinate frequently _X__ Pelvic rest. No sexual intercourse/ Call your physician if you experience: _X__ Increase in vaginal discharge, leaking fluid, or vaginal bleeding. X___ More than 4, 5, or 6 contractions in one hour. __X_ Burning and frequency with urination. DECREASED MOVEMENT __X_ Lie down on your left side, drink some fluids and relax. Count the movements. You need to have 10 movements in 2 hours. _X__ If you do not feel the 10 movements, call your physician. OTHER __X_ After an exam you may experience some spotting or discharge. As long as it is not bright red and heavy like a period or continues to leak as if your water broke, it is to be expected. ___ LABOR Call your physician if you experience: _X__ Painful uterine contractions every 3-5 minutes for 1 hours. _X__A gush or continuous trickle of watery discharge. COME TO THE HOSPITAL AND CALL PHYSICIAN IF: __X_ Your abdomen feels continually firm. ___X *Bleeding is bright red and enough to saturate a pad in one hour or less. *Call 911 or go to the nearest Emergency Room for assistance. Form 056153 D: 04/16 Follow Up Care 04/11/2022 04:12:49 With:MOLINA HUNTER MD Address: [address] [place] [address] [facility] [address] [phone] When: Unknown Comments:call office tuesday to have ultrasound with EMERSON checked. [facility] 03-14-2022 Hospital Discharge instructions Patient Education 03/14/2022 18:29:09 7 - Labor and Delivery Outpatient Instructions(CUSTOM) [facility] DELIV[facility] OUTPATIENT HOME-GOING INSTRUCTIONS _X_ You are to follow up with your physician this week. 1. Call office with temperature greater than 100.4 2. Drink plenty of fluids. Drink Gatorade. 3. Follow up in office this week ACTIVITY ___ Bedrest ___Activity as tolerated ___ No work/school for ___ days. _X__Other ___No work for 3 days PRESCRIPTION GIVEN ___Yes NAUSEA/VOMITING ___ Take small, frequent amounts of clear liquids. Avoid fruit juices and milk. ___ Increase fluid intake to a minimum of 8 ounces of fluid every hour while awake. ___ Soft diet. Rice, crackers, bananas, Jell-O, cooked carrots, applesauce. ___ Coles diet. Avoid caffeine, chocolate, alcohol, spiced/greasy foods. URINARY TRACT INFECTION ___ Drink 8-12 glasses of water every day. ___ Urinate frequently; do not limit fluids to reduce frequency of urination. ___ Call your physician if burning and frequency with urination returns after taking all your medication. ___ Call your physician if you have a temperature of 100.4 degrees Fahrenheit or higher. ___ Wipe from front to back. SIGNS OF PRE-ECLAMPSIA ___ Severe heartburn. ___ Persistent headache not relieved by Tylenol. ___ Increased in swelling of face, hands and feet. ___ Blurred vision, double vision, or spots in the eyes. ___ Persistent vomiting. ___ *Convulsions or seizures. LABOR ___ Restrict activity. ___ Drink 8-12 glasses of water every day. ___ Urinate frequently ___ Pelvic rest. No sexual intercourse/ Call your physician if you experience: _X__ Increase in vaginal discharge, leaking fluid, or vaginal bleeding. _X_ More than 4, 5, or 6 contractions in one hour. _X__ Burning and frequency with urination. DECREASED MOVEMENT ___ Lie down on your left side, drink some fluids and relax. Count the movements. You need to have 10 movements in 2 hours. ___ If you do not feel the 10 movements, call your physician. OTHER _X__ After an exam you may experience some spotting or discharge. As long as it is not bright red and heavy like a period or continues to leak as if your water broke, it is to be expected. ___ LABOR Call your physician if you experience: ___ Painful uterine contractions every ___ minutes for ___ hours. ___A gush or continuous trickle of watery discharge. COME TO THE HOSPITAL AND CALL PHYSICIAN IF: ___ Your abdomen feels continually firm. ___ *Bleeding is bright red and enough to saturate a pad in one hour or less. *Call 911 or go to the nearest Emergency Room for assistance. Form [id number] D: 04/16 Document Released: 04/25/2006 Document Revised: 04/13/2012 Document Reviewed: 04/25/2006 [facility] Patient Information 2012 [employer]. Follow Up Care 03/14/2022 08:15:03 With:MOLINA HUNTER Address: [address] [facility] [address]- [phone] Business (1) When:Within 1 Week(s) Comments:Return to work/school/sports in 3 days [facility] 03-14-2022 Note Patient has received over 2l of fluid and feels somewhat better. Of note during her stay are 1. Wide pulse pressure > 45 on most readings 2. Relative hypotension 3. Leukocytosis, within range for GA but left shift definitely present 4. mild hyponatremia 5. Hypoglycemia Patient being discharged to during the week . Consider echocardiogram as valve conditions among causes of #1. No severe Fe deficiency anemia, no evidence hyperthyroidism. Arteriosclerosis seems unlikely at this age. Will start work up as outpatient. Meantime push fluids with electrolytes and small meals to maintain blood sugar and Na levels. Off work for next 3 days in any case. Digitally Signed by MOLINA HUNTER MD on 03/14/2022 06:38 PM [facility] 03-14-2022 SARS-CoV-2 (COVID-19) RNA JANETH+probe Ql (Nph) Negative *NA* (03/14/22 3:41 PM) AO Auto Urine SS 11-19-2020 Note Send Summary: Discharge Summary Providers: Provider RoleProvider Name ReferringRanney, ChristophGrace Florian Christopher Note Recipients: Betsy Cotto MD - [id number] [] Discharge: Summary: Admission Date: .17-Nov-2020 11:39:00 Discharge Date: 19-Nov-2020 Attending Physician at Discharge: Dr Lewis Admission Reason: Morbid Obesity Final Discharge Diagnoses: Morbid Obesity Procedures: Date: 17-Nov-2020 14:28:00 Procedure Name: robotic assisted sleeve gastrectomy, egd, b/l tap block Vital Signs: T PRBPSpO2 [id number]/7195% Date/Time11/19 3:317 3: 3:317 3:317 3:31 Range(36.1C - 36.8C ) (66 - 90 ) (17 - 18 ) (111 - 120 )/ (68 - 74 ) (95% - 98% ) Date: Weight/Scale Type:Height: 19-Nov-2020 03:18481.9 kg / standing Physical Exam: Physical Exam: Constitutional: Well developed, awake/alert/oriented x3, no distress, alert and cooperative Eyes: PERRL, EOMI, clear sclera Head/Neck: Neck supple, no apparent injury, No JVD, trachea midline Respiratory/Thorax: good chest expansion, thorax symmetric Cardiovascular: Regular, rate and rhythm, 2+ equal pulses of the extremities Gastrointestinal: Nondistended, soft, mild tenderness at incision sites, no rebound tenderness or guarding, no masses palpable, incisions c/d/i Musculoskeletal: ROM intact, no joint swelling, normal strength Extremities: normal extremities, no cyanosis edema, contusions or wounds, no clubbing Neurological: alert and oriented x3, intact senses, Psychological: Appropriate mood and behavior Skin: Warm and dry, no lesions, no rashes Hospital Course: Pt presented to the hospital and underwent robotic assisted laparoscopic sleeve gastrectomy. Pt did well post operatively. Post op esophogram as negative for leaks. Pt discharged home on POD#1 once tolerating diet, ambulating, voiding, pain and nausea under control. Discharge Information: and Continuing Care: Lab Results - Pending: Renal Function Panel Drawn at 19-Nov-2020 07:01:00 Magnesium, Serum Drawn at 19-Nov-2020 07:01:00 Complete Blood Count Drawn at 19-Nov-2020 07:01:00 Surgical Pathology Drawn at 17-Nov-2020 14:32:00 Radiology Results - Pending: None Discharge Instructions: Additional Orders: Additional Instructions: Activity instructions: Activity as tolerated. May shower. No bathing or submerging incisions underwater May not drive while taking narcotics. No pushing, pulling, or lifting objects greater than 15 pounds for 4 week(s). Diet: As per education packet. Take fiber. Call Provider If: Breathing faster than normal. Breathing harder than normal or having retractions. Fever of 100.4 F (38 C) or higher. Temperature is greater than 102 degrees. Chills. Drinking less than normal. Not being able to go 4-6 hours between albuterol treatments. Urinating less than normal, over 1 day. Urinating less than 4 times per day. Acting very sleepy and difficult to awaken. Vomiting (throwing up) and not able to eat or drink for 12 hours. 3 or more loose, watery bowel movements in 24 hours (diarrhea). Any new concerning symptoms. Follow Up Appointments: Follow-Up Appointment 01: Physician/Dept/Service: Dr Lewis Reason for Referral: Post op follow up Call to Schedule in: 1 week Discharge Medications: Home Medication Lexapro 20 mg oral tablet - 1 tab(s) oral once a day Synthroid 100 mcg (0.1 mg) oral tablet - 1 tab(s) oral once a day Wellbutrin - 150 mg oral once a day Vitamin D3 5000 intl units (125 mcg) oral capsule - 1 tab(s) oral once a day Tylenol - 1 tab(s) oral prn PRN Medication Electronic Signatures: Huy Talamantes) (Signed 19-Nov-2020 08:04) Authored: Send Summary, Summary Content, Ongoing Care, Note Completion Last Updated: 19-Nov-2020 08:04 by Huy Talamantes) [facility] 11-18-2020 Note Assessment Subjectiv e/Objective: Note Type: Education Note Authored by: Registered Dietitian Senior Dot Net Developer Pager Number: [phone] Nutrition Note: The patient is a 20 year old Female on Hospital Day # 2 and POD #1 for robotic assisted sleeve gastrectomy, egd, b/l tap block. Nutrition consulted per post bariatric surgery order set to review post op diet progression. Nutrition Interventions: Diet Education Provided: Discussed the type of fluids to drink, the pace at which to drink them today and in the future, protein/fluid/micronutrient intake goals and no straws. Diet Education: Nutrition Education: diet progression post bariatric surgery Education Provided to: patient Understanding of Diet: good Anticipated Compliance: good Follow up: provided information on outpatient nutrition therapy service Time Spent (minutes): 15 Nutrition Support: no Electronic Signatures: Jacy Martinez (SHARON, MELA) (Signed 18-Nov-2020 11:42) Authored: Assessment Subjective/Objective, Nutrition Interventions, Diet Education, Time Spent/Nutrition Support Last Updated: 18-Nov-2020 11:42 by Jacy Martinez (SHARON, MELA) [facility] 11-17-2020 Note PROCEDURE DETAILS Preoperative Diagnosis: morbid obesity Postoperative Diagnosis: morbid obesity Surgeon: dr Lewis Resident/Fellow/Other Passport Support Associate: huy Talamantes Procedure: robotic assisted sleeve gastrectomy, egd, b/l tap block Anesthesia: GETA Estimated Blood Loss: 10cc Findings: see operative report Specimens(s) Collected: yes, stomach Complications: none IV Fluids: 1000cc Urine Output: N/A Drains and/or Catheters: none Patient Returned To/Condition: PACU/Stable Operative Report: Ms. Gonzalez was scheduled on elective basis for a sleeve gastrectomy and related procedures. On the day of surgery after verification of informed consent and anesthesia evaluation she was given subcutaneous heparin and was taken to the operating room and placed in supine position on the table. Timeout was done. Preoperative antibiotic was given, general anesthesia was established, standard sterile prepping and draping of abdominal area was performed. Entry into abdominal cavity was obtained after a pre-incision was using 0 5 mm scope through an optical trocar in the left MCL without technical problems. Pneumoperitoneum was established and there was no iatrogenic injuries. 12 mm port was placed at level of umbilicus, additional 8 mm robotic trocars were placed in the right upper quadrant and left anterior axillary line areas. Entry site trocar was replaced with a robotic trocar as well. Hiatus was inspected and no gross hiatal hernia was identified. Xi Robot was docked now from right side of pt. Dissection was started in the prepyloric area using vessel sealer device the omentum was dissected from greater curvature of stomach all the way to the fundus and fundus was completely mobilized and left sherry was dissected to make sure there was no hiatal hernia . 36 Uzbek ViSiGi tube was inserted by anesthesiologist and guided into the pyloric channel. Now a sleeve gastrectomy was created. First black load was fired starting 5 cm from the pylorus in the antrum area staying at least 3 centimeter away from lesser curve line. Second Black load was fired against the incisura making sure no narrowing was created. Then serially green loads covered with seam guard were fired all the way to the angle of His leaving a cuff of stomach tissue in that area. Staple line was inspected and no technical issues were noted. Robot was undocked at this point. And leak test was performed through the ViSiGi-tube which was negative. Specimen was retrieved through the 12 mm port site. Fascial defect in that area was closed with 2 interrupted 0 Vicryl sutures. Now the tube was removed and a gastroscopy was performed and scope was advanced all the way to the gastric pylorus, there was no narrowing, active bleeding or other technical issues and leak test was negative again. Scope was removed fluid was aspirated, local anesthetic was injected at all the incision sites and in tap block fashion. After final satisfactory examination abdominal cavity, there was no iatrogenic injuries or any active bleeding noted. Trocars were removed. Pneumoperitoneum was discontinued. Skin was closed with 3-0 Monocryl. Liquid bandage was applied. Patient tolerated the operation well and was extubated in the OR and transferred to recovery room in stable condition. Attestation: Note Completion: I am a:Resident/Fellow Attending AttestationI was present for the entire procedure Electronic Signatures: Grace Lewis) (Signed 19-Nov-2020 07:50) Authored: Post-Operative Note, Chart Review, Note Completion Co-Signer: Post-Operative Note, Chart Review, Note Completion Huy Talamantes () (Signed 17-Nov-2020 14:30) Authored: Post-Operative Note, Chart Review, Note Completion Last Updated: 19-Nov-2020 07:50 by Grace Lewis) [facility] 11-17-2020 History of Present illness Narrative Type of Surgery: lap sleeve gastrectomy, surgery Date: 11/17/2020.Weight:.Initial weight: 276 lbs.Last visit weight: 278 lbs.The patient's weight was 278 lbs at pre-op visit.[place] weight 134 lbs.Target body weight 170 lbs.Severity of obesity is Class 3 which is a BMI of greater than or equal to 40.Comorbidities: depressed mood.Sissy is a 20yo F presenting virtually today for a routine 1 week follow up s/p sleeve gastrectomy on 11/17/2020.Comorbidiies of obesity, snoring, depression [id number] [id number] Work Phone: 11-17-2020 History of Present illness Narrative Type of Surgery: lap sleeve gastrectomy, surgery Date: 11/17/2020.Weight:.Initial weight: 276 lbs.Last visit weight: 268 lbs.The patient's weight was 278 lbs at pre-op visit.[place] weight 134 lbs.Target body weight 170 lbs.Severity of obesity is Class 3 which is a BMI of greater than or equal to 40.Diet Stage: regular food.Supplements: taking multivitamins, taking B-12, taking calcium and taking Omeprazole.Comorbidities: depressed mood.Sissy is a 20yo F presenting virtually today for a routine 6 week follow up s/p sleeve gastrectomy on 11/17/2020.Comorbidiies of obesity, snoring, depressionBack to work now. Abdomen still just a little sore. Walking for exercise. [id number]-[id number] MAC2 303 Work Phone: 11-17-2020 History of Present illness Narrative Type of Surgery: lap sleeve gastrectomy, surgery Date: 11/17/2020.Weight:.Initial weight: 276 lbs.Last visit weight: 254 lbs.The patient's weight was 278 lbs at pre-op visit.[place] weight 134 lbs.Target body weight 170 lbs.Severity of obesity is Class 2 which is a BMI of 35-39.9.Diet Stage: regular food.Comorbidities: depressed mood.Sissy is a 20yo F presenting virtually today for a 3 month follow up s/p sleeve gastrectomy on 11/17/2020.Comorbidiies of obesity, snoring, depression KQ-[id number]-Pxppy MAC2 303 Work Phone: 11-17-2020 Note History & Physical R eviewed: /Lactating: Are You no Are You Currently Breastfeedingno I have reviewed the History and Physical dated: 11-Nov-2020 History and Physical reviewed and relevant findings noted. Patient examined to review pertinent physical findings.: No significant changes Home Medications Reviewed: no changes noted Allergies Reviewed: no changes noted ERAS (Enhanced Recovery After Surgery): ERAS Patient: no Consent: COVID-19 Consent: COVID-19 Risk ConsentSurgeon has reviewed pearson risks related to the risk of emanuel COVID-19 and if they contract COVID-19 what the risks are. Electronic Signatures: Huy Talamantes () (Signed 17-Nov-2020 06:46) Authored: History & Physical Reviewed, ERAS, Consent, Note Completion Last Updated: 17-Nov-2020 06:46 by Huy Talamantes () [facility] Evaluation + Plan note Future Appointments Appointment Date:12/18/2021 09:30:00 AM Scheduled Provider:MOLINA HUNTER MD Location:[facility] Appointment Type: OV Future Scheduled TestsGlucose 1 Hour Challenge 11/18/21 [facility] Evaluation + Plan note Future Appointments Appointment Date:01/15/2022 10:30:00 AM Scheduled Provider:MOLINA HUNTER MD Location:[facility] Appointment Type:[facility] OB Routine Follow Up Future Scheduled TestsGlucose 1 Hour Challenge 11/18/21 [facility] Evaluation + Plan note Future Appointments Appointment Date:03/02/2022 02:30:00 PM Scheduled Provider:MOLINA HUNTER MD Location:[facility] Appointment Type: OV Future Scheduled TestsType and Screen (AO) 01/19/22Glucose 1 Hour Challenge 11/18/21Glucose 1 Hour Challenge 01/19/22Glucose 1 Hour Challenge 02/16/22Calcium Level Ionized 02/16/22Magnesium Level 02/16/22Rapid Plasma Reagin Test 01/19/22Rapid Plasma Reagin Test 02/16/22Thyroid Stimulating Hormone 01/19/22Thyroid Stimulating Hormone 02/16/22Free T4 02/16/22Vitamin B12 Level 02/16/22Complete Blood Count 01/19/22Complete Blood Count 02/16/22Vitamin D Level 02/16/22 [facility] Evaluation + Plan note Future Appointments Appointment Date:03/23/2022 03:00:00 PM Scheduled Provider:MOLINA HUNTER MD Location:[facility] Appointment Type: OV OB Routine Follow Up Future Scheduled TestsType and Screen (AO) 01/19/22Glucose 1 Hour Challenge 11/18/21Glucose 1 Hour Challenge 01/19/22Rapid Plasma Reagin Test 01/19/22Thyroid Stimulating Hormone 01/19/22Complete Blood Count 01/19/22 [facility] Evaluation + Plan note Future Appointments Appointment Date:04/06/2022 03:45:00 PM Scheduled Provider:MOLINA HUNTER MD Location:[facility] Appointment Type:[facility] OB Routine Follow Up Future Scheduled TestsType and Screen (AO) 01/19/22Glucose 1 Hour Challenge 11/18/21Glucose 1 Hour Challenge 01/19/22Rapid Plasma Reagin Test 01/19/22Thyroid Stimulating Hormone 01/19/22Complete Blood Count 01/19/22 [facility] Evaluation + Plan note Future Appointments Appointment Date:04/20/2022 03:45:00 PM Scheduled Provider:VIRGEN ORTIZ Location:[facility] Appointment Type: OV OB Routine Follow Up Future Scheduled TestsType and Screen (AO) 01/19/22Glucose 1 Hour Challenge 11/18/21Glucose 1 Hour Challenge 01/19/22Rapid Plasma Reagin Test 01/19/22Thyroid Stimulating Hormone 01/19/22Complete Blood Count 01/19/22 [facility] Evaluation note Constitutional: Well developed, awake/alert/oriented x3, no distress, alert and cooperativeSkin: Warm and dry, no lesions, no rashesRespiratory/Thorax: non labored breathing on room airCardiovascular: regular rateGastrointestinal: Nondistended, soft, no rebound tenderness or guarding, appropriate tenderness to palpation along surgical site, incisions closed ith suture and covered with skin glue c/d/iMusculoskeletal: moving all four extremitiesExtremities: no peripheral edemaNeurological: grossly intactPsychological: Appropriate mood and behavior [facility] course Narrative No data available for this section [facility] Hospital Discharge instructions Additional Orders:Additional Instructions: Activity instructions: Activity as tolerated. May shower. No bathing or submerging incisions underwater May not drive while taking narcotics. No pushing, pulling, or lifting objects greater than 15 pounds for 4 week(s).Diet: As per education packet. Take fiber. Call Provider If:Breathing faster than normal. Breathing harder than normal or having retractions. Fever of 100.4 F (38 C) or higher. Temperature is greater than 102 degrees. Chills. Drinking less than normal. Not being able to go 4-6 hours between albuterol treatments. Urinating less than normal, over 1 day. Urinating less than 4 times per day. Acting very sleepy and difficult to awaken. Vomiting (throwing up) and not able to eat or drink for 12 hours. 3 or more loose, watery bowel movements in 24 hours (diarrhea). Any new concerning symptoms.Follow Up Appointment 1:Physician/Dept/Service: Dr Jones for Referral: Post op follow upCall to Schedule in: 1 week [facility] Discharge instructions No data available for this section [facility] Progress note No data available for this section [facility] Summary Purpose Family History No Family History Records FoundUnknown Family Member Name Dates Details Family history of malignant neoplasm of ovary: Paternal Grandmother(V16.41, Z80.41) Status:Active Family history of hypertensi on: Father(V17.49, Z82.49) Status:Active Unknown Family Member Name Dates Details Family history of malignant neoplasm of ovary: Paternal Grandmother(V16.41, Z80.41) Status:Active Family history of hypertensi on: Father(V17.49, Z82.49) Status:Active Unknown Family Member Name Dates Details Family history of malignant neoplasm of ovary: Paternal Grandmother(V16.41, Z80.41) Status:Active Family history of hypertensi on: Father(V17.49, Z82.49) Status:Active Unknown Family Member Name Dates Details Family history of malignant neoplasm of ovary: Paternal Grandmother(V16.41, Z80.41) Status:Active Family history of hypertensi on: Father(V17.49, Z82.49) Status:Active Unknown Family Member Name Dates Details Family history of malignant neoplasm of ovary: Paternal Grandmother(V16.41, Z80.41) Status:Active Family history of hypertensi on: Father(V17.49, Z82.49) Status:Active Advance Directives No Advanced Directives Records FoundNo Advanced Directives Records FoundNo Advanced Directives Records FoundNo Advanced Directives Records FoundNo Advanced Directives Records Found Chief Complaint * The patient is being seen for post operative visit. * The patient is being seen today for a 1 week post-op visit. Type of surgery: Sleeve Gastrectomy . Surgery date: 11/17/20. * An interactive audio and video telecommunication system which permits real time communications between the patient (at the originating site) and provider (at the distant site) was utilized to providethis telehealth service. * Verbal consent was requested and obtained from SISSY GONZALEZ on this date, 11/25/2020 01:30 PM , for a telehealth visit. * The patient is being seen for post operative visit. * The patient is being seen today for a 6 week post-op visit. Type of surgery: Sleeve Gastrectomy . Surgery date: 11/17/20. * A telephone visit (audio only) between the patient (at the originating site) and the provider (at the distant site) was utilized to provide this telehealth service. * Verbal consent was requested and obtained from SISSY GONZALEZ on this date, 12/23/2020 03:00 PM , for a telehealth visit. * 6 week post-op visit, s/p sleeve gastrectomy 11/17/2020 * The patient is being seen for post operative visit. * The patient is being seen today for a 3 month post-op visit. Type of surgery: Sleeve Gastrectomy . Surgery date: 11/17/20. * An interactive audio and video telecommunication system which permits real time communications between the patient (at the originating site) and provider (at the distant site) was utilized to providethis telehealth service. * Verbal consent was requested and obtained from SISSY GONZALEZ on this date, 02/09/2021 09:21 AM , for a telehealth visit. * 3 month post-op visit, s/p sleeve gastrectomy 11/17/2020 * A telephone visit (audio only) between the patient (at the originating site) and the provider (at the distant site) was utilized to provide this telehealth service. * Obesity * Follow Up Nutrition visit s/p Sleeve Gastrectomy Additional Source Comments INFORMATION SOURCE (unrecogn ized section and content) DATE CREATED AUTHOR AUTHOR'S ORGANIZ ATION 05/20/2021 [facility] DATE CREATED AUTHOR AUTHOR'S ORGANIZ ATION 08/24/2021 [employer] DATE CREATED AUTHOR AUTHOR'S ORGANIZ ATION 07/27/2022 [facility] DATE CREATED AUTHOR AUTHOR'S ORGANIZ ATION 09/03/2022 [facility] ([place]) Reason for Visit (unrecogniz ed section and content) <item> Privacy Markings (unrecogniz ed section and content) Section Author: Erin Krishna PROHIBITION ON REDISCLOSURE OF CONFIDENTIAL INFORMATION This notice accompanies a disclosure of information concerning a client made to you with the consent of such client. Care Team (unrecognized sect ion and content) Care Team Personnel Name: BETSY COTTO MD Member Role: Primary Care Physician Address: Address: [address] [address]- Care Team Related Persons Name: RENÉE TAVERA Address: Home [address] [place] [id number] Care Team Personnel Name: BETSY COTTO MD Member Role: Primary Care Physician Address: Address: [address] [facility] [address] [place] [address] [place] Care Team Related Persons Name: RENÉE TAVERA Address: Home [address] [place] [id number] Care Team Personnel Name: BETSY COTTO MD Member Role: Primary Care Physician Address: Address: [address] [facility] [address] [place] [address] [place] Care Team Related Persons Name: RENÉE TAVERA Address: Home [address] [place] [id number] Name: DAVID GONZALEZ Address: Home [address] [place], [place] [phone] [place] Care Team Personnel Name: BETSY COTTO MD Member Role: Primary Care Physician Address: Address: [address] [facility] [address] [place] [address]- Care Team Related Persons Name: RNEÉE TAVERA Address: Home [address] [place], [place] [id number] Name: DAVID GONZALEZ Address: Home [address] [facility] [facility] [phone] [place] Care Team Personnel Name: BETSY COTTO MD Member Role: Primary Care Physician Address: Address: [address] [facility] [address] [place] [address] [place] Care Team Related Persons Name: RENÉE TAVERA Address: Home [address] [place], [place] [id number] Name: DAVID GONZALEZ Address: Home [address] [facility], [place] [phone] [place] Care Team Personnel Name: BETSY COTTO MD Member Role: Primary Care Physician Address: Address: [address] [facility] [address] [place] [address] [place] Care Team Related Persons Name: RENÉE TAVERA L Address: Home [address] [place], [place] [id number] Name: DAVID GONZALEZ Address: Home [address] [facility], [place] [phone] [place] Care Team Personnel Name: BETSY COTTO MD Member Role: Primary Care Physician Address: Address: [address] [facility] [address] [place] [address] [place] Care Team Related Persons Name: RENÉE TAVERA L Address: Home [address] [place] [phone] Name: DAVID GONZALEZ Address: Home [address] [place], [place] [phone] Care Team Personnel Name: BETSY COTTO MD Member Role: Primary Care Physician Address: Address: [address] [address] [place] Care Team Related Persons Name: RENÉE TAVERA Address: [address] [place] [phone] Name: DAVID GONZALEZ Address: Home [address] [place], [place] [id number] FOR RECORDS PERTAINING TO PATIENTS WHO ARE OR HAVE BEEN ENROLLED IN A CHEMICAL DEPENDENCY/SUBSTANCEABUSE PROGRAM, SOME INFORMATION MAY BE OMITTED. This clinical summary was aggregated from multiple sources. Caution should be exercised in using it in the provision of clinical care. This summary normalizes information from multiple sources, and as a consequence, information in this document may materially change the coding, format and clinical context of patient data. In addition, data may be omitted in some cases. CLINICAL DECISIONS SHOULD BE BASED ON THE PRIMARY CLINICAL RECORDS. [facility] [employer] provides no warranty or guarantee of the accuracy or completeness of information in this document.
== END | disposition home or self-care (01) ==
LOC: MFPLAB 09:22
PROVIDERS: PCP Family Medicine; Visit Provider Family Medicine
DX: E03.9 Hypothyroidism, unspecified (principal)
CPT/HCPCS: 36415; 84443

== ENCOUNTER 2024-06-23 09:49 | Emergency (ER) | payer OTHER, SELFPAY ==
[2024-06-23 09:49] VITALS: BP 113/66; PULSE 62; RESP 14; TEMP 36.1; O2SAT 100; BMI 37.6
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
[2024-06-23 11:04] VITALS: BP 113/66; PULSE 62; RESP 14; TEMP 36.1; O2SAT 100
== END 2024-06-23 11:04 | disposition home or self-care (01) ==
LOC: ED 10:52
PROVIDERS: Emergency Provider Emergency Medicine; PCP Family Medicine; Visit Provider Emergency Medicine
DX: O9A.212 Injury, poisoning and certain other consequences of external causes complicating pregnancy, second trimester (principal); Z3A.18 18 weeks gestation of pregnancy; S16.1XXA Strain of muscle, fascia and tendon at neck level, initial encounter; V48.5XXA Car driver injured in noncollision transport accident in traffic accident, initial encounter; O99.342 Other mental disorders complicating pregnancy, second trimester; F41.9 Anxiety disorder, unspecified; F32.A Depression, unspecified; Z79.899 Other long term (current) drug therapy; E03.9 Hypothyroidism, unspecified; Z79.890 Hormone replacement therapy; Z90.49 Acquired absence of other specified parts of digestive tract; O99.282 Endocrine, nutritional and metabolic diseases complicating pregnancy, second trimester
CPT/HCPCS: 99282